=== PATIENT | male | born 2000 | race Caucasian/White ===

== ENCOUNTER → 2023-01-05 | Outpatient (CLI) | payer OTHER, SELFPAY ==
--- NOTE | 2023-01-05 15:45 | RAD_ITS ---
STUDY: X-RAY EXAMINATION: SCOLIOSIS SERIES REASON FOR EXAM: Male, 22 years old. Scoliosis. Back pain. TECHNIQUE: 2 view(s) of the thoracolumbar spine were obtained in the upright standing position. COMPARISON: None. FINDINGS: There is a 9.6 degree levoscoliosis of the upper thoracic spine with the apex of the convexity at the T5 level. There is a 11.2 degree dextroscoliosis of the lower thoracic spine with apex of the convexity at the T9 level. There is a 24 degree levoscoliotic of the thoracolumbar spine with the apex of the convexity at the L1 level. Normal kyphosis of the thoracic spine. Normal thoracic vertebrae and endplates. Normal disc space heights of the thoracic spine. Normal lordosis of the lumbar spine. Normal lumbar vertebrae and endplates. Normal disc space heights of the lumbar spine. The soft tissue structures are unremarkable. RAD/Scoliosis 2 or 3 views IMPRESSION: Diffuse scoliosis of the thoracolumbar spine, as above. Electronically Signed: Michi Bashir DO at 19:43 EST ,
== END | disposition home or self-care (01) ==
PROVIDERS: PCP Pediatrics; Referring Provider Pediatrics; Visit Provider Pediatrics
DX: Z13.828 Encounter for screening for other musculoskeletal disorder (principal)
CPT/HCPCS: 72082

== ENCOUNTER 2025-09-13 21:35 | Emergency (ER) | payer OTHER, SELFPAY ==
[2025-09-13 21:36] VITALS: BP 128/92; PULSE 89; RESP 18; TEMP 36.8; O2SAT 100; BMI 18.7
--- NOTE | 2025-09-13 22:16 | EDS_ITS ---
HPI History of Present Illness Chief Complaint: Suicidal Narrative Narrative: Patient is a 25-year-old male who presented to the emergency department chief complaint of suicidal ideation. Patient states that he has had increasing thoughts secondary to family issues and relationship issues he states this is mainly secondary to his relationship as he found out that his girlfriend became and found out that she cheated on him and this is not his kids. States that he is not on any medications for his anxiety his depression as he had a new primary care physician and they do not want to prescribe this while he is using marijuana he states that he is refusing to discontinue marijuana use. He states that his plan was to drink lethal amount of alcohol and lay next to a river bed. He states that if this did not work he was going to go to his friend's house and get a loaded gun and shoot himself. He states he has never been hospitalized in the past [facility] Medical History Depression Anxiety Home Medications ?Medication ?Instructions ?Recorded ?Last Taken ?Type NK 09/13/25 Unknown History Allergy/AdvReac Type Severity Reaction Status Date / Time No Known Allergies Allergy Verified 09/13/25 21:36 Social History Smoking Status: Current every day smoker tobacco type: e-cigarettes ROS ROS ED ROS Narrative Constitutional: Denies fevers, chills, headaches Eyes: Denies double vision Cardiovascular: Denies chest pain Respiratory: Denies shortness of breath Abdomen: Denies nausea vomit diarrhea : Denies urinary symptoms Neurological: Denies numbness, weakness, tingling Musculoskeletal: Denies back pain Psychiatric: Complaint suicidal ideation denies homicidal ideation Skin: Warm, dry, tact no rashes or lesions noted EXAM Physical Exam Narrative Exam Narrative: General: Patient was lying in bed rest comfortably did not appear to be in acute distress Head: Atraumatic, normocephalic Eyes: PERRL bilaterally, EOMI bilateral, no conjunctival injection noted on Neck: Soft, supple, trachea midline Cardiovascular: Regular rate and rhythm Respiratory: Clear to auscultation bilaterally Abdomen: Soft, nondistended Extremities: Plus 5/5 strength in the bilateral upper and lower extremities Neurological: Patient following commands knew that he was at [facility] years 2024 Skin: Warm, dry, tact no rashes or lesions noted Const Vital Signs: 09/13/25 21:36 09/13/25 22:36 09/13/25 23:33 Temperature 98.2 F Temperature Source Temporal Pulse Rate 89 60 Respiratory Rate 18 18 18 Blood Pressure 128/92 H 115/69 Blood Pressure Mean 104 84 Pulse Ox 100 100 Oxygen Delivery Method Room Air Room Air MDM MDM MDM Narrative Medical decision making narrative: Patient is a 25-year-old male who presented to the emergency department chief complaint of suicidal ideation. On the differential diagnose includes to depression, suicidal ideation. Once workup is obtained reviewed he will be evaluated by crisis. Patient's CBC reviewed and showed no evidence leukocytosis white blood count normal at 9.5, hemosixteen 0.3, platelet count to be 247. Patient sodium is 138, potassium normal 3.9, creatinine was 0.97. Patient's drug screen was presumptive positive for cannabis alcohol level less than 10. Patient is medically cleared. Patient will be evaluated by crisis. Patient was accepted to [facility] by Dr. Aguilar Lab Data Labs: Laboratory Results - last 24 hr 09/13/25 09/13/25 21:56 22:08 WBC 9.5 RBC 5.00 Hgb 16.3 Hct 46.4 MCV 92.8 MCH 32.6 H MCHC 35.1 RDW Std Deviation 43.5 RDW Coeff of Ana 12.7 Plt Count 247 MPV 10.4 Immature Gran % (Auto) 0.200 Neut % (Auto) 84.7 H Lymph % (Auto) 9.7 L [place] % (Auto) 5.0 Eos % (Auto) 0.1 Baso % (Auto) 0.3 Absolute Neuts (auto) 8.1 H Absolute Lymphs (auto) 0.92 Nucleated RBC % 0 Sodium 138 Potassium 3.9 Chloride 100 Carbon Dioxide 26.5 Anion Gap 12 BUN 20 H Creatinine 0.97 Estim Creat Clear Calc 105.47 Est GFR (MDRD) Non-Af 111 BUN/Creatinine Ratio 20.7 H Glucose 103 H Calcium 9.7 Urine Opiates Screen NEGATIVE U Buprenorphine Qual NEGATIVE Ur Oxycodone Screen NEGATIVE Urine Methadone Screen NEGATIVE Urine Fentanyl Screen NEGATIVE Ur Barbiturates Screen NEGATIVE Ur Phencyclidine Scrn NEGATIVE Ur Amphetamines Screen NEGATIVE U Benzodiazepines Scrn NEGATIVE Urine Cocaine Screen NEGATIVE U Cannabinoids Screen PRESUMPTIVE POSITIVE Ethyl Alcohol < 10.1 Discharge Plan Triage Chief Complaint: Suicidal ED Provider: Harrison Barrientos Dx/Rx/DC Orders Clinical Impression: Suicidal ideation, Anxiety, Depression Prescriptions: No Action NK Primary Care Provider: Magen Santos Referrals: Arturo Chavez MD [Non-Staff, Pediatrics] Print Language: Kinyarwanda Disposition Disposition: Psychiatric Hospital or Unit
--- OUTSIDE RECORDS SUMMARY | 2025-09-13 22:26 | XMS RPT_ITS | CCD ---
Author Organization [facility] Care Team Providers Care Nuclear Fuel Processing Technician Name Role Phone Arturo Pickens MD Primary Care Provider Arturo Pickens Referring Unavailable Arturo Pickens Attending Unavailable Arturo Pickens Primary Care Unavailable Arturo Pickens MD Primary Care Provider Unavailable Primary Care Provider Arturo Park MD Primary Care Provider MICHI TOLBERT II Attending Unavailable ARTURO PICKENS Primary Care Unavailable Unavailable Primary Care Provider UnavailNima Odonnell Jr Attending Unavailable Vale Rodriguez Referring Unavailable LIZZETH SANTOS Referring Unavailab LIZZETH Lincoln Attending Unavailab Lizzeth Lincoln MD Primary Care Provider Podlogar CLINICAL DIRECTOR.Becki MASON Unavailable [place]le CLINICAL DIRECTOR.Trinidad MASON Unavailable Medications Current Medications Medication Drug Class(es) Dates Sig (Normalized) Sig (Original) amoxicillin 875 mg / clavulanate 125 mg oral tablet (1 source) Penicillin-class Antibacterial Start: 05-31-2023 End: 06-05-2023 take 1 tablet by mouth twice daily amoxicillin-clavul anic acid (AUGMENTIN) 875-125 mg per tablet Take 1 tablet by mouth twice daily for 5 days. 10 tablet 0 05/31/2023 06/05/2023 Active Comment on above: Take 1 tablet by karla th twice daily for 5 days. 24 hr amphetamine aspartate 1.25 mg / amphetamine sulfate 1.25 mg / dextroamphetamine saccharate 1.25 mg / dextroamphetamine sulfate 1.25 mg extended release oral capsule (20 sources) Central Nervous System Stimulant Start: 02-13-2025 End: 04-12-2025 take 1 capsule by mouth once daily amphetamine-dextro amphetamine XR (ADDERALL XR) 20 mg capsule Indications: Attention deficit hyperactivity disorder (ADHD), predominantly inattentive type Take 1 capsule by mouth once daily for 30 days. 30 capsule 03/13/2025 04/12/2025 Active Start: 02-13-2025 End: 04-12-2025 take 1 capsule by mouth once daily amphetamine-dextroamphetamine XR (ADDERA LL XR) 5 mg capsule Indications: Attention deficit hyperactivity disorder (ADHD), predominantly inattentive type Take 1 capsule by mouth once daily for 30 days. to add to 20 mg for a dose of 25mg daily 30 capsule 03/13/2025 04/12/2025 Active Start: 01-02-2025 End: 02-01-2025 take 1 capsule by mouth once daily amphetamine-dextroamphetamine XR (ADDERA LL XR) 20 mg capsule Indications: Attention deficit hyperactivity disorder (ADHD), predominantly inattentive type Take 1 capsule by mouth once daily for 30 days. 30 capsule 01/02/2025 02/01/2025 Active Start: 01-02-2025 End: 02-01-2025 take 1 capsule by mouth once daily amphetamine-dextroamphetamine XR (ADDERA LL XR) 5 mg capsule Indications: Attention deficit hyperactivity disorder (ADHD), predominantly inattentive type Take 1 capsule by mouth once daily for 30 days. to add to 20 mg for a dose of 25mg daily 30 capsule 01/02/2025 02/01/2025 Active Start: 11-25-2024 End: 12-25-2024 take 1 capsule by mouth once daily amphetamine-dextroamphetamine XR (ADDERA LL XR) 20 mg capsule Indications: Attention deficit hyperactivity disorder (ADHD), predominantly inattentive type Take 1 capsule by mouth once daily for 30 days. 30 capsule 11/25/2024 12/25/2024 Active Start: 11-25-2024 End: 12-25-2024 take 1 capsule by mouth once daily amphetamine-dextroamphetamine XR (ADDERA LL XR) 5 mg capsule Indications: Attention deficit hyperactivity disorder (ADHD), predominantly inattentive type Take 1 capsule by mouth once daily for 30 days. to add to 20 mg for a dose of 25mg daily 30 capsule 11/25/2024 12/25/2024 Active Start: 12-31-2023 End: 06-24-2024 amphetamine-dextroamphetamin e XR (ADDERALL XR) 25 mg capsule Indications: Attention deficit hyperactivity disorder (ADHD), predominantly inattentive type Take 1 capsule by mouth once daily for 30 days. Do not start before December 31, 2023. 30 capsule 0 12/31/2023 06/24/2024 Discontinued Start: 03-09-2023 End: 11-05-2024 take 1 capsule by mouth once daily amphetamine-dextroamphetamine XR (ADDERA LL XR) 20 mg capsule Indications: Attention deficit hyperactivity disorder (ADHD), predominantly inattentive type Take 1 capsule by mouth once daily for 30 days. 30 capsule 09/05/2024 10/06/2024 Discontinued Start: 03-09-2023 End: 11-05-2024 take 1 capsule by mouth once daily amphetamine-dextroamphetamine XR (ADDERA LL XR) 5 mg capsule Indications: Attention deficit hyperactivity disorder (ADHD), predominantly inattentive type Take 1 capsule by mouth once daily for 30 days. to add to 20 mg for a dose of 25mg daily 30 capsule 09/05/2024 10/06/2024 Discontinued Start: 01-14-2023 End: 02-13-2023 take 1 capsule by mouth once daily amphetamine-dextroamphetamine XR (ADDERA LL XR) 5 mg 24 hr capsule Indications: Attention deficit hyperactivity disorder (ADHD), predominantly inattentive type Take 1 capsule by mouth once daily for 30 days. to add to 20 mg for a dose of 25mg daily 30 capsule 0 01/14/2023 02/13/2023 Active Start: 12-29-2022 End: 02-13-2023 take 1 capsule by mouth once daily amphetamine-dextroamphetamine XR (ADDERA LL XR) 20 mg 24 hr capsule Indications: Attention deficit hyperactivity disorder (ADHD), predominantly inattentive type Take 1 capsule by mouth once daily for 30 days. 30 capsule 0 01/14/2023 02/13/2023 Active Start: 10-27-2022 End: 12-25-2022 take 1 capsule by mouth once daily amphetamine-dextroamphetamine XR (ADDERA LL XR) 20 mg 24 hr capsule Indications: Attention deficit hyperactivity disorder (ADHD), predominantly inattentive type Take 1 capsule by mouth once daily for 30 days. 30 capsule 0 11/25/2022 12/25/2022 Active Start: 10-27-2022 End: 12-25-2022 take 1 capsule by mouth once daily amphetamine-dextroamphetamine XR (ADDERA LL XR) 5 mg 24 hr capsule Indications: Attention deficit hyperactivity disorder (ADHD), predominantly inattentive type Take 1 capsule by mouth once daily for 30 days. to add to 20 mg for a dose of 25mg daily 30 capsule 0 11/25/2022 12/25/2022 Active Start: 08-18-2022 End: 10-22-2022 take 1 capsule by mouth once daily amphetamine-dextroamphetamine XR (ADDERA LL XR) 20 mg 24 hr capsule Indications: Attention deficit hyperactivity disorder (ADHD), predominantly inattentive type Take 1 capsule by mouth once daily for 30 days. 30 capsule 0 09/22/2022 10/22/2022 Active Start: 06-19-2022 End: 10-22-2022 take 1 capsule by mouth once daily amphetamine-dextroamphetamine XR (ADDERA LL XR) 5 mg 24 hr capsule Indications: Attention deficit hyperactivity disorder (ADHD), predominantly inattentive type Take 1 capsule by mouth once daily for 30 days. to add to 20 mg for a dose of 25mg daily 30 capsule 0 09/22/2022 10/22/2022 Active Start: 06-16-2022 End: 08-15-2022 take 1 capsule by mouth once daily amphetamine-dextroamphetamine XR (ADDERA LL XR) 20 mg 24 hr capsule Indications: Attention deficit hyperactivity disorder (ADHD), predominantly inattentive type Take 1 capsule by mouth once daily for 30 days. 30 capsule 0 07/16/2022 08/15/2022 Active Start: 12-02-2021 End: 06-08-2022 take 1 capsule by mouth once daily amphetamine-dextroamphetamine XR (ADDERA LL XR) 20 mg 24 hr capsule Indications: Attention deficit hyperactivity disorder (ADHD), predominantly inattentive type Take 1 capsule by mouth once daily for 30 days. 30 capsule 0 05/09/2022 06/08/2022 Active Start: 12-02-2021 End: 06-08-2022 take 1 capsule by mouth once daily amphetamine-dextroamphetamine XR (ADDERA LL XR) 5 mg 24 hr capsule Indications: Attention deficit hyperactivity disorder (ADHD), predominantly inattentive type Take 1 capsule by mouth once daily for 30 days. to add to 20 mg for a dose of 25mg daily 30 capsule 0 05/09/2022 05/19/2022 Discontinued take 2 tablets by [facility] once daily amphetamine-dextroamphetamine 10 MG tabl et Take 2 tablets by mouth daily. Active Comment on above: Take 1 capsule by [facility] once daily for 30 days. Take 1 capsule by [facility] once daily for 30 days. to add to 20 mg for a dose of 25mg daily Take 1 capsule by [facility] once daily for 30 days. to add to 20 mg for a dose of 25mg daily Do not start before December 31, 2021. Take 1 capsule by [facility] once daily for 30 days. Do not start before December 31, 2021. Take 1 capsule by [facility] once daily for 30 days. Do not start before May 08, 2023. Take 1 capsule by [facility] once daily for 30 days. Do not start before April 08, 2023. Take 1 capsule by [facility] once daily for 30 days. to add to 20 mg for a dose of 25mg daily Do not start before May 08, 2023. Take 1 capsule by [facility] once daily for 30 days. to add to 20 mg for a dose of 25mg daily Do not start before April 08, 2023. Take 1 capsule by [facility] once daily for 30 days. Do not start before December 31, 2023. Completed/Discontinued Medications Medication Drug Class(es) Dates Sig (Normalized) Sig (Original) baclofen 10 mg oral tablet (15 sources) gamma-Aminobutyric Acid-ergic Agonist Start: 12-04-2023 End: 03-24-2025 take 1 tablet by mouth every eight hours as needed baclofen 10 mg tablet Take 1 tablet by mouth three times a day as needed. 50 tablet 12/04/2023 03/24/2025 Discontinued (Course of therapy completed) Comment on above: Take 1 tablet by [facility] three times a day as needed. [id number] 0.3 ml EPINEPHrine 1 mg/ml auto-injector (3 sources) alpha-Adrenergic Agonist, beta-Adrenergic Agonist, Catecholamine Start: 02-19-2017 End: 05-19-2022 EPINEPHrine (EPIPEN) 0.3 mg/0.3 mL auto-injector Indications: Angioedema, initial encounter Inject 0.3 mL intramuscularly as needed. Please dispense generic 2 Each 0 02/19/2017 05/19/2022 Discontinued Comment on above: Inject 0.3 mL intram uscularly as needed. Please dispense generic erythromycin 0.005 mg/mg ophthalmic ointment (20 sources) Macrolide, Macrolide Antimicrobial Start: 05-31-2023 End: 03-24-2025 erythromycin (ROMYCIN) 5 mg/gram (0.5 %) ophthalmic ointment Use 1 application in the right eye twice daily. 3.5 g 05/31/2023 03/24/2025 Discontinued (Course of therapy completed) Comment on above: Use 1 application in the right eye twice daily. ISOtretinoin (20 sources) Retinoid ISOTRETINOIN (ACCUTANE ORAL) Take by mouth. 0 Active Comment on above: Take by mouth. meloxicam 7.5 mg oral tablet (15 sources) Nonsteroidal Anti-inflammatory Drug Start: 12-04-2023 End: 03-24-2025 take 1 tablet by mouth once daily meloxicam (MOBIC) 7.5 mg tablet Take 1 tablet by mouth once daily. 30 tablet 12/04/2023 03/24/2025 Discontinued (Course of therapy completed) Comment on above: Take 1 tablet by [facility] once daily. ondansetron 4 mg disintegrating oral tablet (1 source) Serotonin-3 Receptor Antagonist Start: 02-09-2024 End: 02-09-2024 take 1 dose by mouth once 8 mg, Oral, ONCE, 1 dose, On Thu02/09/24 at 0230 Problems Active Problems Problem Classification Problem Date Documented Date Episodic/Chronic Adjustment disorders (20 sources) Adjustment disorder; Translations: [Adjustment disorder, unspecified] Onset: 12-13-2015 12-13-2015 Chronic Attention-deficit, conduct, and disruptive behavior disorders (20 sources) Attention deficit hyperactivity disorder, predominantly inattentive type; Translations: [Attention-deficit hyperactivity disorder, predominantly inattentive type] Chronic Attention-deficit, conduct, and disruptive behavior disorders (4 sources) Attention deficit hyperactivity disorder; Translations: [Attention-deficit hyperactivity disorder, unspecified type] 03-24-2025 Chronic Attention-deficit, conduct, and disruptive behavior disorders (1 source) Attention-deficit hyperactivity disorder, predominantly inattentive type; Translations: [Attention deficit hyperactivity disorder (ADHD), predominantly inattentive type] Onset: 03-24-2025 Chronic E Codes: Natural/environment (1 source) Dog bite - wound; Translations: [Bitten by dog, initial encounter] Episodic Immunizations and screening for infectious disease (6 sources) Patient encounter status; Translations: [Encounter for screening for human immunodeficiency virus [HIV]] Onset: 03-24-2025 03-24-2025 Episodic Other eye disorders (1 source) Disorder of eye; Translations: [Unspecified disorder of eye and adnexa] Episodic Other nutritional; endocrine; and metabolic disorders (1 source) Underweight; Translations: [Underweight] 03-24-2025 Episodic Other nutritional; endocrine; and metabolic disorders (1 source) Underweight; Translations: [Underweight (BMI < 18.5)] Onset: 03-24-2025 Episodic Other nutritional; endocrine; and metabolic disorders (1 source) Body mass index (BMI) 19.9 or less, adult; Translations: [Underweight (BMI < 18.5)] Onset: 03-24-2025 Episodic Residual codes; unclassified (1 source) Nicotine-filled electronic cigarette user; Translations: [Tobacco use] 03-24-2025 Episodic Residual codes; unclassified (1 source) Tobacco use; Translations: [Vapes nicotine containing substance] Onset: 03-24-2025 Episodic Substance-related disorders (3 sources) Marijuana user; Translations: [Cannabis use, unspecified, uncomplicated] Onset: 03-24-2025 03-24-2025 Episodic Syncope (3 sources) Near syncope; Translations: [Syncope and collapse] Onset: 02-09-2024 02-09-2024 Episodic Unclassified (1 source) NO SHOW 02-08-2024 Past or Other Problems Problem Classification Problem Date Documented Date Episodic/Chronic Other diseases of veins and lymphatics (20 sources) Varicocele; Translations: [Scrotal varices] Onset: 06-11-2015 06-11-2015 Episodic Other injuries and conditions due to external causes (20 sources) Angioedema; Translations: [Angioneurotic edema, initial encounter] Onset: 02-23-2017 02-23-2017 Episodic Other screening for suspected conditions (not mental disorders or infectious disease) (20 sources) General problem AND/OR complaint; Translations: [Encounter for screening for other musculoskeletal disorder] Onset: 09-04-2016 09-04-2016 Episodic Other skin disorders (20 sources) Acne; Translations: [Acne, unspecified] Onset: 07-01-2013 07-01-2013 Episodic Results Test Name Value Interpretation Reference Range Facility [facility] 03-24-2025 CNOV Office Visit (FAMPWS ) KWABENA APARICIO ([id number]) 2 M Date Time Provider Department 03/24/25 1:00 PM [facility] your visit today, we recorded the following information about you: Pulse Blood pressure Weight Height 99/minute 100/62 59.4 kg 1.809 m Lizzeth Santos MD 03/28/2025 8:21 AM Signed Chief Complaint Patient presents with: Establish Care: Peds transfer HPI Kwabena Aparicio is a 24 year old male who presents here today for Above Complaints. Previous PCP: Dr. Pickens with last OV 12/2022. Patient has been in good health without recent hospitalizations, ER visits. No concerns today. ADD: Current Treatment: Adderall XR 25mg daily. Last dose this morning. Feels treatment is working well: Yes. Weight loss: No. Insomnia: No. GASTROENTEROLOGY complaints: No. Tremor: No. Mood disorder: No. Chest pain/Palpitations: No Aware of risks associated with controlled substance use: No. Hx of misuse/abuse/diversio n of meds: No. Patient admits to vaping nicotine and THC and uses marijuana. Not interested in help with cessation. BMI under 18.5, but weight stable since 05/2203. Past medical history, appointments, medications, allergies reviewed. Previous Medical History PAST MEDICAL HISTORY Diagnosis Date Acne ADHD (attention deficit hyperactivity disorder) Kawasaki disease (HCC) age 3-4 Scoliosis Previous Surgical History PAST SURGICAL HISTORY Procedure Laterality Date NONE Family History FAMILY HISTORY Problem Relation Age of Onset None Mother None Father Cancer Paternal Grandmother Ovarian Patient Allergies ALLERGIES No Known Allergies Current Medications Current Outpatient Medications on File Prior to Visit Medication Sig amphetamine-dextroamp hetamine XR (ADDERALL XR) 20 mg capsule Take 1 capsule by mouth once daily for 30 days. amphetamine-dextroamp hetamine XR (ADDERALL XR) 5 mg capsule Take 1 capsule by mouth once daily for 30 days. to add to 20 mg for a dose of 25mg daily baclofen 10 mg tablet Take 1 tablet by mouth three times a day as needed. (Patient not taking: Reported on 03/24/2025) meloxicam (MOBIC) 7.5 mg tablet Take 1 tablet by mouth once daily. (Patient not taking: Reported on 03/24/2025) erythromycin (ROMYCIN) 5 mg/gram (0.5 %) ophthalmic ointment Use 1 application in the right eye twice daily. (Patient not taking: Reported on 03/24/2025) No current facility-administered medications on file prior to visit. Social History Social History Tobacco Use Smoking status: Never Smokeless tobacco: Never Vaping Use Vaping status: Never Used Review of Symptoms REVIEW OF SYSTEMS GENERAL: No weight loss, malaise or fevers HEENT: Negative for frequent or significant headaches, No changes in hearing or vision, no nose bleeds or other nasal problems NECK: Negative for lumps, goiter, pain and significant neck swelling RESPIRATORY: Negative for cough, hemoptysis, wheezing, COPD, dyspnea or shortness of breath CARDIOVASCULAR: Negative for chest pain, leg swelling, hypertension, CHF or palpitations GI: No nausea, vomiting, or diarrhea : No history of dysuria, frequency or incontinence MUSCULOSKELETAL: Negative for joint pain or swelling, back pain or muscle pain SKIN: Negative for lesions, rash, and itching PSYCH: Negative for sleep disturbance, mood disorder and recent psychosocial stressors HEMATOLOGY/LYMPHOLOGY : Negative for prolonged bleeding, bruising easily or swollen nodes ENDOCRINE: Negative for cold or heat intolerance, polyuria, polydipsia and goiter NEURO: No history of headaches, syncope, paralysis, seizures or tremors EXAM: BP 100/62 Pulse 99 Ht 180.9 cm (5' 11.22) Wt 59.4 kg (131 lb) SpO2 98% BMI 18.16 kg/m? General Appearance: Well appearing, alert, in no acute distress, well-hydrated, well nourished.. Skin: Skin color, texture, turgor normal, no suspicious rashes or lesions. Head: Normocephalic, no masses, lesions, tenderness or abnormalities. Eyes: Anicteric sclera. Pupils are equally round and reactive to light. Extraocular movements are intact. . Ears: External ears normal, canals clear. Nose/Sinuses: Nares normal, septum midline, mucosa normal, no drainage or sinus tenderness. Oropharynx: Lips, mucosa, and tongue normal, teeth and gums normal, oropharynx normal. Neck: Supple, no adenopathy; thyroid symmetric, normal size, no bruits. Lungs: Lungs clear to auscultation. No wheezing, rhonchi, rales.. Heart: RRR without murmur, gallop, or rubs. No ectopy. Abdomen: Normal abdominal exam, Abdomen soft, non-tender. Bowel sounds normal. No masses, organomegaly. Extremities: No deformities, edema, skin discoloration, clubbing or cyanosis. Good capillary refill. . Peripheral Pulses: Normal. Neurologic: CN II-XII Lymph Nodes: No cervical lymphadenopathy and No supr (more content not included)... Normal [facility] CALCIUMon 02-09-2024 Calcium [Mass/Vol] 9.5 mg/dL Normal 8.6-10.5 [facility] Comment on above: Performed By: #### C A, IPB, CHM7, MGO #### [facility] (DEFAULT) [address] [address] Calcium [Mass/Vol] 9.5 mg/dL 8.6 - 10. 5 mg/dL [facility] CBC AND ELECTRONIC DIFFon Basophils (Bld) [#/Vol] 0.04 10*3/uL Normal 0.00-0.09 [facility] Comment on above: Performed By: #### L [id number] #### [facility] (DEFAULT) [address] [address] Basophils/100 WBC (Bld) 0.5 % Normal [facility] Comment on above: Performed By: #### L [id number] #### [facility] (DEFAULT) [address] [address] DIFF STATUS Electronic Differential Normal [facility] Comment on above: Performed By: #### L [id number] #### [facility] (DEFAULT) [address] [address] Eosinophils (Bld) [#/Vol] 0.04 10*3/uL Normal 0.00-0.48 [facility] Comment on above: Performed By: #### L [id number] #### [facility] (DEFAULT) [address] [address] Eosinophils/100 WBC (Bld) 0.5 % Normal [facility] Comment on above: Performed By: #### L [id number] #### [facility] (DEFAULT) [address] [address] Hematocrit (Bld) [Volume fraction] 44.9 % Normal 39.6-48.8 [facility] Comment on above: Performed By: #### L [id number] #### [facility] (DEFAULT) [address] [address] Hemoglobin (Bld) [Mass/Vol] 15.6 g/dL Normal 13.4-16.8 [facility] Comment on above: Performed By: #### L [id number] #### [facility] (DEFAULT) [address] [address] Immature Grans % 0.2 % Normal [facility] Comment on above: Performed By: #### L [id number] #### [facility] (DEFAULT) [address] [address] Immature Grans Absolute < Normal <=0.07 [facility] Comment on above: Performed By: #### L [id number] #### [facility] (DEFAULT) [address] [address] Lymphocytes (Bld) [#/Vol] 1.94 10*3/uL Normal 0.83-3.57 [facility] Comment on above: Performed By: #### L [id number] #### [facility] (DEFAULT) [address] [address] Lymphocytes/100 WBC (Bld) 22.7 % Normal [facility] Comment on above: Performed By: #### L [id number] #### [facility] (DEFAULT) [address] [address] MCV (RBC) [Entitic vol] 91.3 fL Normal 79.0-94.5 [facility] Comment on above: Performed By: #### L [id number] #### [facility] (DEFAULT) [address] [address] Mean Cell Hgb 31.7 pg Normal 26.1-33.3 [facility] Comment on above: Performed By: #### L [id number] #### [facility] (DEFAULT) [address] [address] Mean Cell Hgb Conc 34.7 g/dL Normal 31.9-36.5 [facility] Comment on above: Performed By: #### L [id number] #### [facility] (DEFAULT) [address] [address] Monocytes (Bld) [#/Vol] 0.38 10*3/uL Normal 0.24-0.93 [facility] Comment on above: Performed By: #### L [id number] #### [facility] (DEFAULT) [address] [address] Monocytes/100 WBC (Bld) 4.4 % Normal [facility] Comment on above: Performed By: #### L [id number] #### [facility] (DEFAULT) [address] [address] Nucleated RBC 0.0 /100 WBC Normal <=0.2 [facility] Comment on above: Performed By: #### L [id number] #### [facility] (DEFAULT) [address] [address] Platelet mean volume (Bld) [Entitic vol] 10.3 fL Normal 8.7-12.3 [facility] Comment on above: Performed By: #### L [id number] #### [facility] (DEFAULT) [address] [place] [address] Platelets (Bld) [#/Vol] 260 10*3/uL Normal 146-337 [facility] Comment on above: Performed By: #### L [id number] #### [facility] (DEFAULT) [address] [place] [address] RBC (Bld) [#/Vol] 4.92 10*6/uL Normal 4.38-5.83 [facility] Comment on above: Performed By: #### L [id number] #### [facility] (DEFAULT) [address] [place] [id number] RBC Distribution 11.8 % Normal 10.9-14.3 [facility] Comment on above: Performed By: #### L [id number] #### [facility] (DEFAULT) [address] [place] [address] Segs + Bands Auto 71.7 % Normal [facility] Comment on above: Performed By: #### L [id number] #### [facility] (DEFAULT) [address] [place] [address] Segs + Bands,Absolute Auto 6.14 K/uL Normal 1.57-6.19 [facility] Comment on above: Performed By: #### L [id number] #### [facility] (DEFAULT) [address] [place] [address] WBC (Bld) [#/Vol] 8.56 10*3/uL Normal 3.73-10.10 [facility] Comment on above: Performed By: #### L [id number] #### [facility] (DEFAULT) [address] [place] [id number] Basophils (Bld) [#/Vol] 0.04 10*3/uL 0.00 - 0.09 K/uL [facility] Basophils/100 WBC (Bld) 0.5 % [facility] Differential cell count method Nom (Bld) Electronic Differential [facility] Eosinophils (Bld) [#/Vol] 0.04 10*3/uL 0.00 - 0.48 K/uL [facility] Eosinophils/100 WBC (Bld) 0.5 % [facility] Erythrocyte distribution width (RBC) [Ratio] 11.8 % 10.9 - 14.3 % [facility] Hematocrit (Bld) [Volume fraction] 44.9 % 39.6 - 48.8 % [facility] Hemoglobin (Bld) [Mass/Vol] 15.6 g/dL 13.4 - 16.8 g/dL [facility] Immature granulocytes (Bld) [#/Vol] K/uL NINF - 0.07 K/uL [facility] Immature granulocytes/100 WBC (Bld) 0.2 % [facility] Lymphocytes (Bld) [#/Vol] 1.94 10*3/uL 0.83 - 3.57 K/uL [facility] Lymphocytes/100 WBC (Bld) 22.7 % [facility] MCH (RBC) [Entitic mass] 31.7 pg 26.1 - 33.3 pg [facility] MCHC (RBC) [Mass/Vol] 34.7 g/dL 31.9 - 36.5 g/dL [facility] MCV (RBC) [Entitic vol] 91.3 fL 79.0 - 94.5 fL [facility] Monocytes (Bld) [#/Vol] 0.38 10*3/uL 0.24 - 0.93 K/uL [facility] Monocytes/100 WBC (Bld) 4.4 % [facility] Neutrophils (Bld) [#/Vol] 6.14 10*3/uL 1.57 - 6.19 K/uL [facility] Nucleated RBC/100 WBC (Bld) [Ratio] 0.0 % [facility] Platelet mean volume (Bld) [Entitic vol] 10.3 fL 8.7 - 12.3 fL [facility] Platelets (Bld) [#/Vol] 260 10*3/uL 146 - 337 K/uL [facility] RBC (Bld) [#/Vol] 4.92 10*6/uL [facility] Segmented neutrophils/100 WBC (Bld) 71.7 % [facility] WBC (Bld) [#/Vol] 8.56 10*3/uL 3.73 - 10. 10 K/uL [facility] CHEM 7 (LYTES,BUN,CREA,GLUC) on 02-09-2024 Anion gap [Moles/Vol] 12 mmol/L Normal 7-17 [facility] Comment on above: Performed By: #### C Jaylin, IPB, CHM7, MGO #### [facility] (DEFAULT) [address] [place] [address] Chloride [Moles/Vol] 101 mmol/L Normal 98-108 [facility] Comment on above: Performed By: #### Gerda Mosqueda, IPB, CHM7, MGO #### [facility] (DEFAULT) [address] [place] [address] CO2 [Moles/Vol] 27 mmol/L Normal 21-31 [facility] Comment on above: Performed By: #### Gerda Mosqueda, IPB, CHM7, MGO #### [facility] (DEFAULT) [address] [place] [address] Creatinine [Mass/Vol] 1.22 mg/dL Normal 0.70-1.30 [facility] Comment on above: Performed By: #### Greda A, IPB, CHM7, MGO #### [facility] (DEFAULT) [address] [place] [address] GFR/1.73 sq M.predicted among non-blacks MDRD (S/P/Bld) [Vol rate/Area] 86 mL/min/{1.73_m2} Normal >=60 [facility] Comment on above: Result Comment: Repo rted eGFR is based on the CKD-EPI 2020 equation using creatinine, age, and sex. Performed By: #### C A, IPB, CHM7, MGO #### [facility] (DEFAULT) [address] [place] [address] Glucose [Mass/Vol] 188 mg/dL High 70-99 [facility] Comment on above: Performed By: #### Gerda Mosqueda, SAYRAB, CHM7, MGO #### [facility] (DEFAULT) [address] [place] [address] Osmolality [Osmolality] 293 mosm/kg Normal 278-305 [facility] Comment on above: Performed By: #### Gerda Mosqueda, IPB, CHM7, MGO #### [facility] (DEFAULT) [address] [place] [address] Potassium [Moles/Vol] 3.5 mmol/L Normal 3.5-5.0 [facility] Comment on above: Performed By: #### Gerda Mosqueda, IPB, CHM7, MGO #### [facility] (DEFAULT) [address] [place] [address] Sodium [Moles/Vol] 136 mmol/L Normal 135-145 [facility] Comment on above: Performed By: #### Gerda Mosqueda IPB, CHM7, MGO #### [facility] (DEFAULT) [address] [place] [address] Urea nitrogen [Mass/Vol] 20 mg/dL Normal 7-25 [facility] Comment on above: Performed By: #### Gerda Mosqueda, IPB, CHM7, MGO #### [facility] (DEFAULT) [address] [place] [address] Urea nitrogen/Creatinine [Mass ratio] 16 mg/mg Normal [facility] Comment on above: Performed By: #### Gerda Mosqueda, IPB, CHM7, MGO #### [facility] (DEFAULT) [address] [place] [address] Anion gap [Moles/Vol] 12 mmol/L 7 - 17 mmol/L [facility] Chloride [Moles/Vol] 101 mmol/L 98 - 10 8 mmol/L [facility] CO2 [Moles/Vol] 27 mmol/L 21 - 31 mmol/L [facility] Creatinine [Mass/Vol] 1.22 mg/dL 0.70 - 1.30 mg/dL [facility] eGFR, CKD-EPI, Male 86 - PINF [facility] Comment on above: Reported eGFR is bas ed on the CKD-EPI 2020 equation using creatinine, age, and sex. Glucose [Mass/Vol] 188 mg/dL High 70 - 99 mg/dL [facility] Interpretation and review of laboratory results Abnormal [facility] Osmolality Calc [Osmolality] 293 [facility] Potassium [Moles/Vol] 3.5 mmol/L 3.5 - 5.0 mmol/L [facility] Sodium [Moles/Vol] 136 mmol/L 135 - 145 mmol/L [facility] Urea nitrogen [Mass/Vol] 20 mg/dL 7 - 25 mg/dL [facility] Urea nitrogen/Creatinine [Mass ratio] 16 mg/mg [facility] FLUAV and FLUBV Ag IA.rapid Nom (Unsp spec)on 02-09-2024 FLUAV Ag IA.rapid Ql (Nph) Not detected Not Detected [facility] FLUBV Ag IA.rapid Ql (Nph) Not detected Not Detected [facility] Interpretation and review of laboratory results Normal [facility] This test utilizes isothermal nucleic amplification technology for the differential qualitative detection of influenza A and influenza B viral nucleic acids. [facility] GLUCOSE POCon 02-09-2024 Glucose [Mass/Vol] 184 mg/dL High 70 - 99 mg/dL [facility] Interpretation and review of laboratory results Abnormal [facility] POC Sample Type CAPBL [facility] Test performed at address of the patient encounter. [facility] HIGH SENSITIVITY TROPONIN I - SINGLE ORDERon 02-09-2024 hs-Troponin I <3 Normal <53 [facility] Comment on above: Order Comment: Acute Coronary Syndrome (ACS): Initial Evaluation and Management: [email or web address] Performed By: #### L ABHSTI1 #### [facility] (DEFAULT) [address] [address] Interpretation and review of laboratory results Normal [facility] Troponin I.cardiac High sensitivity method [Mass/Vol] ng/L NINF - 53 ng/L [facility] INFLUENZA A/B RAPID MOLECULA Marcos 02-09-2024 Influenza A, Molecular Not detected Normal Not Detected [facility] Comment on above: Order Comment: This test utilizes isothermal nucleic amplification technology for the differential qualitative detection of influenza A and influenza B viral nucleic acids. Performed By: #### F LUABM #### [facility] (DEFAULT) [address] [address] Influenza B, Molecular Not detected Normal Not Detected [facility] Comment on above: Order Comment: This test utilizes isothermal nucleic amplification technology for the differential qualitative detection of influenza A and influenza B viral nucleic acids. Performed By: #### F LUABM #### [facility] (DEFAULT) [address] [address] MAGNESIUMon 02-09-2024 Magnesium [Mass/Vol] 2.2 mg/dL Normal 1.6-2.6 [facility] Comment on above: Performed By: #### C EVARISTO Mosqueda CHM7, MGO #### [facility] (DEFAULT) [address] [address] Magnesium [Mass/Vol] 2.2 mg/dL 1.6 - 2 .6 mg/dL [facility] No Panel Informationon 02-08 [facility] Interpretation and review of laboratory results Normal [facility] PHOSPHATE, INORGANICon 02-08 Phosphorous 4.0 mg/dL Normal 2.2-4.6 [facility] Comment on above: Performed By: #### C EVARISTO Mosqueda CHM7, MGO #### [facility] (DEFAULT) [address] [place] [address] Phosphate [Mass/Vol] 4.0 mg/dL 2.2 - 4 .6 mg/dL [facility] Portable XR Chest Viewson IMPRESSION: No acute cardiopulmonary findings. OLOGY EXAM: XR CHEST 1 VIE W PORTABLE, 02/09/2024 01:12 AM COMPARISON: No prior studies available for comparison. CLINICAL INDICATIONS: patient with chest pain FINDINGS: (Adequate technique) Implanted Devices: None Thorax: Cardiac and mediastinal contours are normal. No focal consolidation or pleural effusion. Levoscoliotic curvature of the lower thoracic spine. RADIOLOGY Ally Hooks M D - 02/09/2024 EXAM: XR CHEST 1 VIEW PORTABLE, 02/09/2024 01:12 AM COMPARISON: No prior studies available for comparison. CLINICAL INDICATIONS: patient with chest pain FINDINGS: (Adequate technique) Implanted Devices: None Thorax: Cardiac and mediastinal contours are normal. No focal consolidation or pleural effusion. Levoscoliotic curvature of the lower thoracic spine. IMPRESSION IMPRESSION: No acute cardiopulmonary findings. [facility] Radiology Study observation (narrative) [facility] Portable XR Chest ViewsOrder ed By: Ally Hooks on 02-09-2024 [facility] Work Phone: SARS-COV-2 RAPIDon SARS-CoV-2 (COVID-19) RNA JB+probe Ql (Unsp spec) Not detected Normal NOT DETECTED [facility] Comment on above: Order Comment: Use a beatrice, foam, polyester, or flocked swab to collect a nasal or nasopharyngeal specimen. After collection, place in a clean, plastic screw cap vial, cap tightly and label with patient information. Transport double bagged in biohazard bag at room temperature. Must be received within 60 minutes of collection. Collection must be done while wearing N-95 mask, eye protection, gown, and gloves. Result Comment: [facility] Negative results do not preclude SARS-CoV-2 infection and should not be used as the sole basis for treatment or other patient management decisions. Optimum specimen types and timing for peak viral levels during infections caused by SARS-CoV-2 has not been determined. The possibility of a false negative result should especially be considered if the patient's recent exposures or clinical presentation suggest that SARS-CoV-2 infection is probable, and diagnostic tests for other causes of illness (e.g., other respiratory illness) are negative. Collection of a new specimen and re-testing may be necessary if the patient is critically ill or clinically deteriorating. This test was performed using isothermal nucleic acid amplification technology for the qualitative detection of SARS-CoV-2 nucleic acid. Performed By: #### L ABSARS1 #### [facility] (DEFAULT) [address] [place] [address] SARS-CoV-2 (COVID-19) RNA NA A+probe Ql (Unsp spec)Ordered By: Scott Sue on 02-09-2024 Interpretation and review of laboratory results Normal [facility] SARS-CoV-2 (COVID-19) RdRp gene JB+probe Ql (Resp) Not detected NOT DETECTED [facility] Comment on above: [facility] Negative results do not preclude SARS-CoV-2 infection and should not be used as the sole basis for treatment or other patient management decisions. Optimum specimen types and timing for peak viral levels during infections caused by SARS-CoV-2 has not been determined. The possibility of a false negative result should especially be considered if the patient's recent exposures or clinical presentation suggest that SARS-CoV-2 infection is probable, and diagnostic tests for other causes of illness (e.g., other respiratory illness) are negative. Collection of a new specimen and re-testing may be necessary if the patient is critically ill or clinically deteriorating. This test was performed using isothermal nucleic acid amplification technology for the qualitative detection of SARS-CoV-2 nucleic acid. [facility] XR CHEST 1 VIEW PORTABLEon 0 02-09-2024 XR CHEST 1 VIEW PORTABLE EXAM: XR CHEST 1 VIEW PORTABLE, 02/09/2024 01:12 AM COMPARISON: No prior studies available for comparison. CLINICAL INDICATIONS: patient with chest pain FINDINGS: (Adequate technique) Implanted Devices: None Thorax: Cardiac and mediastinal contours are normal. No focal consolidation or pleural effusion. Levoscoliotic curvature of the lower thoracic spine. IMPRESSION: No acute cardiopulmonary findings. Normal [facility] Scoliosis 2 or 3 viewson Scoliosis 2 or 3 views [facility] Services [address] [place] [address] Scoliosis 2 or 3 views MR#: [id number] Acct: [id number] Name: KWABENA APARICIO Rep #: [id number] : 2000 M 22 From: Michi Bashir DO PCP: Dr. Arturo Pickens MD Status: REG CLI Study: Scoliosis 2 or 3 views Date of Exam: 01/05/23 Exam# [id number] Ordering Dr: Arturo Pickens MD STUDY: X-RAY EXAMINATION: SCOLIOSIS SERIES REASON FOR EXAM: Male, 22 years old. Scoliosis. Back pain. TECHNIQUE: 2 view(s) of the thoracolumbar spine were obtained in the upright standing position. COMPARISON: None. FINDINGS: There is a 9.6 degree levoscoliosis of the upper thoracic spine with the apex of the convexity at the T5 level. There is a 11.2 degree dextroscoliosis of the lower thoracic spine with apex of the convexity at the T9 level. There is a 24 degree levoscoliotic of the thoracolumbar spine with the apex of the convexity at the L1 level. Normal kyphosis of the thoracic spine. Normal thoracic vertebrae and endplates. Normal disc space heights of the thoracic spine. Normal lordosis of the lumbar spine. Normal lumbar vertebrae and endplates. Normal disc space heights of the lumbar spine. The soft tissue structures are unremarkable. RAD/Scoliosis 2 or 3 views IMPRESSION: Diffuse scoliosis of the thoracolumbar spine, as above. Electronically Signed: Michi Bashir DO at 19:43 EST , CC: Dr. Arturo Pickens MD Assurance Senior Manager: Signed Normal [facility] Vital Signs Date Time Vital Sign Value Performing Clinician Faci lity 03-24-2025 13:08-0400 Body height 180.9 cm Lizzeth Santos MD Work Phone: [facility] 03-24-2025 13:08-0400 Body mass index (BMI) [Ratio] 18.16 kg/m2 Lizzeth Santos MD Work Phone: [facility] 03-24-2025 13:08-0400 Body weight 59.42 kg Lizzeth Santos MD Work Phone: [facility] 03-24-2025 13:08-0400 Diastolic blood pressure 62 mm[Hg] Lizzeth Santos MD Work Phone: [facility] 03-24-2025 13:08-0400 Heart rate 99 /min Lizzeth Santos MD Work Phone: [facility] 03-24-2025 13:08-0400 SaO2% (BldA) [Mass fraction] 98 % Lizzeth Santos MD Work Phone: [facility] 03-24-2025 13:08-0400 Systolic blood pressure 100 mm[Hg] Lizzeth Santos MD Work Phone: [facility] 02-09-2024 12:12-0400 Body temperature 97.5 [degF] Michi Tolbert II, MD Work Phone: [facility] 02-09-2024 12:12-0400 Diastolic blood pressure 65 mm[Hg] Michi Tolbert II, MD Work Phone: [facility] 02-09-2024 12:12-0400 Heart rate 65 /min Michi Tolbert II, MD Work Phone: [facility] 02-09-2024 12:12-0400 Respiratory rate 16 /min Michi Tolbert II, MD Work Phone: [facility] 02-09-2024 12:12-0400 Systolic blood pressure 110 mm[Hg] Michi Tolbert II, MD Work Phone: [facility] 02-09-2024 09:39-0400 SaO2% (BldA) [Mass fraction] 100 % Michi Tolbert II, MD Work Phone: [facility] 02-09-2024 00:56-0400 Body height 182.9 cm Michi Tolbert II, MD Work Phone: [facility] 05-31-2023 12:36-0400 Body temperature 97.5 [degF] Emely Nichol CLINICAL DIRECTOR.ADVERTISEMENT COMPOSITOR Work Phone: [facility] 05-31-2023 12:36-0400 Body weight 60.24 kg Emely Nichol CLINICAL DIRECTOR.ADVERTISEMENT COMPOSITOR Work Phone: [facility] 05-31-2023 12:36-0400 Diastolic blood pressure 62 mm[Hg] Emely Nichol CLINICAL DIRECTOR.ADVERTISEMENT COMPOSITOR Work Phone: [facility] 05-31-2023 12:36-0400 Heart rate 84 /min Emely Nichol CLINICAL DIRECTOR.ADVERTISEMENT COMPOSITOR Work Phone: [facility] 05-31-2023 12:36-0400 Respiratory rate 18 /min Eemly Nichol CLINICAL DIRECTOR.ADVERTISEMENT COMPOSITOR Work Phone: [facility] 05-31-2023 12:36-0400 SaO2% (BldA) [Mass fraction] 98 % Emely Nichol CLINICAL DIRECTOR.ADVERTISEMENT COMPOSITOR Work Phone: [facility] 05-31-2023 12:36-0400 Systolic blood pressure 100 mm[Hg] Emely Nichol CLINICAL DIRECTOR.ADVERTISEMENT COMPOSITOR Work Phone: [facility] 01-16-2023 13:21-0500 Body temperature 97.59 [degF] Arturo Pickens MD Work Phone: [facility] 01-16-2023 13:21-0500 Body weight 62.14 kg Arturo Pickens MD Work Phone: [facility] 01-16-2023 13:21-0500 Diastolic blood pressure 76 mm[Hg] Arturo Pickens MD Work Phone: [facility] 01-16-2023 13:21-0500 Heart rate 88 /min Arturo Pickens MD Work Phone: [facility] 01-16-2023 13:-0500 Respiratory rate 20 /min Arturo Pickens MD Work Phone: [facility] 01-16-2023 13:21-0500 Systolic blood pressure 124 mm[Hg] Arturo Pickens MD Work Phone: [facility] Encounters Encounter Date Encounter Type Care Provider Facility Start: 05-29-2025 End: 05-31-2025 Refill Arturo Pickens MD Work Phone: [facility] Comment on above: Refill Request Start: 05-07-2025 End: 05-09-2025 Refill Arturo Pickens MD Work Phone: [facility] Comment on above: Refill Request Start: 04-20-2025 End: 04-25-2025 ambulatory Lizzeth Santos MD Work Phone: [facility] Comment on above: Drug Test Inquiry Start: 03-24-2025 ambulatory LIZZETH Samuel acility:[facility] Start: 03-24-2025 End: 03-24-2025 ambulatory LIZZETH SANTOS Facility:[facility] Start: 03-24-2025 Encounter for genera l adult medical examination without abnormal findings LIZZETH SANTOS [facility] Start: 03-24-2025 End: 03-24-2025 Patient encounter procedure Lizzeth Santos MD Work Phone: [facility] Comment on above: Encounter for medica l examination to establish care (Primary Dx); Attention deficit hyperactivity disorder (ADHD), predominantly inattentive type; Marijuana use; Vapes nicotine containing substance; Underweight (BMI < 18.5); Screening for HIV (human immunodeficiency virus); Special screening examination for viral disease; Need for vaccination; Encounter for immunization Start: 03-24-2025 End: 03-24-2025 Patient encounter status Lizzeth Santos MD Work Phone: [facility] Work Phone: Start: 03-13-2025 End: 03-13-2025 Refill Arturo Pickens MD Work Phone: [facility] Comment on above: Refill Request Start: 02-10-2025 End: 02-13-2025 Refill Arturo Pickens MD Work Phone: [facility] Comment on above: Refill Request Start: 01-01-2025 End: 01-02-2025 Refill Arturo Pickens MD Work Phone: [facility] Comment on above: Refill Request Start: 11-29-2024 ambulatory Nima Arguello [facility] Start: 11-23-2024 End: 11-25-2024 Refill Arturo Pickens MD Work Phone: [facility] Comment on above: Refill Request Start: 10-06-2024 End: 10-06-2024 Refill No Pcp CLINICAL DIRECTOR [facility] Comment on above: Refill Request Start: 09-05-2024 End: 09-05-2024 Refill Arturo Pickens MD Work Phone: [facility] Comment on above: Refill Request Start: 09-05-2024 End: 10-06-2024 Refill Arturo Pickens MD Work Phone: [facility] Comment on above: Refill Request Start: 09-02-2024 End: 09-02-2024 Refill Arturo Pickens MD Work Phone: [facility] Comment on above: Refill Request Start: 07-24-2024 End: 07-25-2024 Refill Arturo Pickens MD Work Phone: [facility] Comment on above: Refill Request Start: 06-24-2024 Refill Arturo Pickens MD Work Phone: [facility] Comment on above: Refill Request Start: 06-23-2024 Refill Lizzeth Santos MD Work Phone: [place] Start: 02-23-2024 Refill Arturo Pickens MD Work Phone: [facility] Comment on above: Refill Request Start: 02-09-2024 End: 02-09-2024 Emergency department patient visit MICHI TOLBERT Facility:[facility] Start: 02-09-2024 End: 02-09-2024 Emergency department patient visit Michi Tolbert MD Work Phone: [facility] Start: 02-08-2024 End: 02-08-2024 Unlisted evaluation and management service Donnie North MD Work Phone: [facility] Comment on above: NO SHOW (Primary Dx) Start: 01-14-2024 Refill Arturo Pickens MD Work Phone: [facility] Comment on above: Refill Request Start: 09-13-2023 Refill Arturo Pickens MD Work Phone: [facility] Comment on above: Refill Request Start: 08-07-2023 Refill Arturo Pickens MD Work Phone: [facility] Comment on above: Refill Request Start: 07-09-2023 Refill Arturo Pickens MD Work Phone: [facility] Comment on above: Refill Request Start: 07-06-2023 Refill Arturo Pickens MD Work Phone: [facility] Comment on above: Refill Request Start: 06-05-2023 Refill Arturo Pickens MD Work Phone: [facility] Comment on above: Refill Request Start: 05-31-2023 End: 05-31-2023 Patient encounter procedure Emely Gandara APRN.ADVERTISEMENT COMPOSITOR Work Phone: [facility] Comment on above: Dog bite, initial en counter (Primary Dx); Eye problem Start: 05-06-2023 Refill Arturo Pickens MD Work Phone: [facility] Comment on above: Refill Request Start: 03-26-2023 ambulatory Arturo Pickens MD Work Phone: [facility] Comment on above: Medication not in [facility] Start: 03-07-2023 Refill Arturo Pickens MD Work Phone: [facility] Comment on above: Refill Request Start: 01-16-2023 End: 01-16-2023 Office outpatient visit 15 minutes Arturo Pickens MD Work Phone: [facility] Comment on above: Attention deficit hy peractivity disorder (ADHD), predominantly inattentive type (Primary Dx) Start: 01-09-2023 Telephone encounter Arturo vazquez MD Work Phone: [facility] [place] Comment on above: Medication Problem Start: 01-05-2023 End: 01-05-2023 Patient encounter procedure [facility], [facility] Start: 01-05-2023 End: 01-05-2023 ambulatory Arturo Pickens [facility] Work Phone: Start: 12-27-2022 Refill Arturo Pickens MD Work Phone: [facility] [place] Comment on above: Refill Request Start: 11-22-2022 Refill Arturo Pickens MD Work Phone: [facility] [place] Comment on above: Refill Request Start: 11-17-2022 End: 11-17-2022 Subsequent hospital visit by physician [facility] [place] Work Phone: Radiology Comment on above: Canceled (CC cx: Err or or Template Change) Start: 11-17-2022 ambulatory Arturo Pickens MD Work Phone: [facility] [place] Comment on above: X-ray Start: 10-25-2022 Refill Arturo Pickens MD Work Phone: [facility] [place] Comment on above: Refill Request Start: 09-22-2022 Refill Arturo Pickens MD Work Phone: [facility] [place] Comment on above: Refill Request Start: 08-19-2022 Refill Arturo Pickens MD Work Phone: [facility] [place] Comment on above: Refill Request Start: 07-19-2022 Refill Arturo Pickens MD Work Phone: [facility] [place] Comment on above: Refill Request Start: 06-15-2022 Refill Arturo Pickens MD Work Phone: [facility] [place] Comment on above: Refill Request Start: 05-21-2022 Telephone encounter [facility] [place] Comment on above: Smoking Cessation Start: 05-19-2022 End: 05-19-2022 [facility] Arturo Pickens MD Work Phone: [facility] [place] Comment on above: Attention deficit hy peractivity disorder (ADHD), predominantly inattentive type (Primary Dx) Start: 05-09-2022 Refill Arturo Pickens MD Work Phone: [facility] [place] Comment on above: Refill Request Start: 04-02-2022 Refill Arturo Pickens MD Work Phone: [facility] [place] Comment on above: Refill Request Procedures Date Procedure Procedure Detail Performing Clinician Start: 02-09-2024 Infectious agent dna /rna influenza 1st 2 types Idalia Celis MD Work Phone: Start: 02-09-2024 Sars-cov-2 detection by dna/rna Idalia Celis MD Work Phone: Start: 02-09-2024 Glucose measurement, blood Other Other OT Start: 02-09-2024 Radiologic exam ches t single view Celeste Ospina MD Work Phone: Start: 02-09-2024 Assay of magnesium Yael Ospina MD Work Phone: Start: 02-09-2024 CBC AND ELECTRONIC DIFF Celeste Ospina MD Work Phone: Start: 02-09-2024 Complete blood count with white cell differential, automated Celeste Ospina MD Work Phone: Start: 02-09-2024 GOLD TOP TUBE Celeste Ospina MD Work Phone: Start: 02-09-2024 LAVENDER TOP TUBE Fela Ospina MD Work Phone: Start: 02-09-2024 LT BLUE TOP TUBE Ayana Ospina MD Work Phone: Start: 02-09-2024 MINT GREEN TOP TUBE Raeann Ospina MD Work Phone: Start: 02-09-2024 RAINBOW DRAW Celeste Ospina MD Work Phone: Start: 01-05-2023 Radiography of spine Start: 05-18-2022 Adult depression scr eening assessment Arturo Pickens MD Work Phone: Start: 01-28-2021 Adult depression scr eening assessment Arturo Pickens MD Work Phone: Plan of Treatment Date Care Activity Detail Author Start: 03-24-2026 Covid-19 Vaccine ( season) Covid-19 Vaccine () [facility] Comment on above: Postponed from 07/31 (Declined at this time) Start: 09-23-2025 MENINGOCOCCAL B VACC INE (BEXSERO) MENINGOCOCCAL B VACCINE (BEXSERO) Immunization/Injection Routine Expected: 09/23/2025 [facility] Comment on above: Expected: 09/23/2025 Start: 07-31-2025 Influenza vaccination C [facility] Start: 05-29-2025 Influenza vaccination Influenza Vacc ine (#1) [facility] Comment on above: Postponed from 07/31 (Declined at this time) Start: 04-25-2025 End: 07-25-2025 QUANTITATIVE TOXICOLOGY PANEL, URINE QUANTITATIVE TOXICOLOGY PANEL, URINE Lab Routine Marijuana use Expected: 04/25/2025, Expires: 07/25/2025 [facility] Comment on above: Expected: 04/25/2025 , Expires: 07/25/2025 Start: 04-25-2025 End: 07-25-2025 TOXICOLOGY SCREEN, ROUTINE URINE TOXICOLOGY SCREEN, ROUTINE URINE Lab Routine Marijuana use Expected: 04/25/2025, Expires: 07/25/2025 [facility] Work Phone: Comment on above: Expected: 04/25/2025 , Expires: 07/25/2025 Start: 03-24-2025 End: 06-23-2025 CBC W Auto Differential panel - Blood COMPLETE BLOOD COUNT AND DIFFERENTIAL Lab Routine Encounter for medical examination to establish care Expected: 03/24/2025, Expires: 06/23/2025 [facility] Comment on above: Expected: 03/24/2025 , Expires: 06/23/2025 Start: 03-24-2025 End: 06-23-2025 Comprehensive metabolic 2000 panel - Serum or Plasma COMPREHENSIVE METABOLIC PANEL Lab Routine Encounter for medical examination to establish care Expected: 03/24/2025, Expires: 06/23/2025 [facility] Comment on above: Expected: 03/24/2025 , Expires: 06/23/2025 Start: 03-24-2025 End: 06-23-2025 Hepatitis C virus Ab [Presence] in Serum HEPATITIS C ANTIBODY IA WITH CONFIRMATION Lab Routine Special screening examination for viral disease Expected: 03/24/2025, Expires: 06/23/2025 [facility] Comment on above: Expected: 03/24/2025 , Expires: 06/23/2025 Start: 03-24-2025 End: 06-23-2025 HIV 1+2 Ab [Presence] in Serum or Plasma by Immunoassay HIV 1/2 COMBO WITH REFLEX TO DIFFERENTIATION Lab Routine Screening for HIV (human immunodeficiency virus) Expected: 03/24/2025, Expires: 06/23/2025 [facility] Comment on above: Expected: 03/24/2025 , Expires: 06/23/2025 Start: 03-24-2025 End: 06-23-2025 LIPID PANEL, NONFASTING LIPID PANEL, NONFASTING Lab Routine Encounter for medical examination to establish care Expected: 03/24/2025, Expires: 06/23/2025 [facility] Comment on above: Expected: 03/24/2025 , Expires: 06/23/2025 Start: 03-24-2025 End: 06-23-2025 Thyrotropin [Units/volume] in Serum or Plasma THYROID STIMULATING HORMONE Lab Routine Underweight (BMI < 18.5) Expected: 03/24/2025, Expires: 06/23/2025 [facility] Comment on above: Expected: 03/24/2025 , Expires: 06/23/2025 Start: 03-24-2025 End: 03-24-2025 Patient encounter procedure 03/24/2025 1:00 PM EDT Office Visit [facility] [place] [address] [facility] [place], [place] [address] Lizzeth Santos MD [address] [facility] [place], [place] [id number] Peds transfer / Est with Danielle [facility] Comment on above: Peds transfer / Est with Danielle Start: 09-02-2024 End: 09-02-2024 Patient encounter procedure 09/02/2024 10:20 AM EDT Office Visit [facility] [place] [address] [facility] [place], [place] [id number] Lizzeth Santos MD [address] [facility] [place], [place] [id number] Peds transfer [facility] Comment on above: Peds transfer Start: 07-31-2024 Covid-19 Vaccine ( season) Covid-19 Vaccine ( season) [facility] Start: 07-31-2024 Influenza vaccination Influenza Vacc ine (#1) [facility] Start: 11-30-2023 Depression Assessment Depression Ass essment [facility] Start: 07-31-2023 COVID-19 VACCINE ( season) COVID-19 VACCINE ( season) [facility] Start: 07-31-2023 Covid-19 Vaccine ( season) Covid-19 Vaccine ( season) [facility] Start: 07-31-2023 Influenza vaccination C [facility] Start: 05-18-2023 Adult depression screening assessment DEPRESSION SCREENING [facility] Start: 11-30-2022 DEPRESSION ASSESSMENT DEPRESSION ASS ESSMENT [facility] Start: 07-31-2022 Influenza vaccination C [facility] Start: 06-26-2022 Tetanus vaccination TETANUS [facility] Start: 06-26-2022 Urine microalbumin profile [facility] Start: 01-28-2022 Adult depression screening assessment DEPRESSION SCREENING [facility] Start: 11-30-2021 DEPRESSION ASSESSMENT DEPRESSION ASS ESSMENT [facility] Start: 06-10-2021 COVID-19 VACCINE (2 - Booster for Moderna series) COVID-19 VACCINE (2 - Booster for Moderna series) [facility] Start: 06-10-2021 COVID-19 VACCINE (2 - Moderna series) COVID-19 VACCINE (2 - Moderna series) [facility] Start: 05-13-2021 COVID-19 VACCINE (2 - Moderna risk series) COVID-19 VACCINE (2 - Moderna risk series) [facility] Start: 05-13-2021 COVID-19 VACCINE (2 - Moderna series) COVID-19 VACCINE (2 - Moderna series) [facility] Start: 2020 SHINGRIX VACCINE (1 of 2) SHINGRIX VACCINE (1 of 2) [facility] Start: 2019 Anxiety Screening Anxiety Screening [facility] Start: 2019 Depression Screening Depression Scre ening [facility] Start: 2019 HEPATITIS C SCREENING HEPATITIS C [facility] Start: 2019 Hepatitis C screening Hepatitis C [facility] Start: 2019 HIV SCREENING HIV SCREENING [facility] Start: 2019 HIV screening HIV Screening [facility] Start: 2017 Meningococcal B Vacc ine (1 of 2 - Standard) Meningococcal B Vaccine (1 of 2 - Standard) [facility] Start: 2017 Meningococcal B Vaccine: Consider Based On Risk (1 of 2 - Patient Seeks Protection) Meningococcal B Vaccine: Consider Based On Risk (1 of 2 - Patient Seeks Protection) [facility] Start: 2017 MENINGOCOCCAL B: Consider based on risk (1 of 2 - Patient Seeks Protection) MENINGOCOCCAL B: Consider based on risk (1 of 2 - Patient Seeks Protection) [facility] Start: 2016 HIV screening HIV SCREENING DISCUSSI ON U [facility] Start: 2015 PEDS TO ADULT TRANSITION ANNUAL ASSESSMENT PEDS TO ADULT TRANSITION ANNUAL ASSESSMENT [facility] Start: 2013 COVID-19 VACCINE (1) COVID-19 VACCIN E (1) [facility] Start: 2013 PEDS TO ADULT TRANSITION INITIAL DISCUSSION PEDS TO ADULT TRANSITION INITIAL DISCUSSION [facility] Start: 2011 MENINGOCOCCAL B: Consider based on risk (1 of 2 - Risk Bexsero 2-dose series) MENINGOCOCCAL B: Consider based on risk (1 of 2 - Risk Bexsero 2-dose series) [facility] Start: 2007 PNEUMOCOCCAL (1 - PCV) PNEUMOCOCCAL (1 - PCV) [facility] Start: 2007 PNEUMOCOCCAL VACCINE SERIES (1 of 2 - PCV) PNEUMOCOCCAL VACCINE SERIES (1 of 2 - PCV) [facility] Start: 2006 COVID-19 VACCINE (#1) COVID-19 VACCI NE (#1) [facility] Start: 2001 Hepatitis C screening HEPATITI S C VIRUS SCREENING [facility] MENINGOCOCCAL B VACC INE (BEXSERO) MENINGOCOCCAL B VACCINE (BEXSERO) Immunization/Injection Routine Ordered: 03/24/2025 [facility] Comment on above: Ordered: 03/24/2025 End: 02-09-2024 Standard ECG ECG ECG STAT One Time for 1 Occurrences starting 02/09/2024 until 02/09/2024 [facility] Work Phone: Comment on above: One Time for 1 Occur rences starting 02/09/2024 until 02/09/2024 Tdap vaccine 7 yrs/> im TDAP VAC CINE, AGE 7+ YR (ADACEL, BOOSTRIX) Immunization/Injection Routine Ordered: 03/24/2025 [facility] Work Phone: Comment on above: Ordered: 03/24/2025 [facility] Immunizations Immunization Date Immunization Notes Care Provider [facility] 09-22-2018 Influenza, injectabl e, Madin Sandra Canine Kidney, preservative free, quadrivalent Arturo Pickens MD Work Phone: [facility] Work Phone: 09-22-2018 influenza virus vaccine, unspecified formulation Arturo Pickens MD Work Phone: [facility] 11-16-2017 influenza, injectabl e, quadrivalent, contains preservative Arturo Pickens MD Work Phone: [facility] 11-16-2017 meningococcal polysaccharide (groups A, C, Y and W-135) diphtheria toxoid conjugate vaccine (MCV4P) Arturo Pickens MD Work Phone: [facility] 08-23-2016 influenza, injectabl e, quadrivalent, contains preservative Arturo Pickens MD Work Phone: [facility] 10-13-2015 influenza, injectabl e, quadrivalent, contains preservative Arturo Pickens MD Work Phone: [facility] 09-28-2014 influenza, live, intranasal, quadrivalent Arturo Pickens MD Work Phone: [facility] 03-02-2014 human papilloma viru s vaccine, quadrivalent Arturo Pickens MD Work Phone: [facility] Work Phone: 08-16-2013 human papilloma viru s vaccine, quadrivalent Arturo Pickens MD Work Phone: [facility] Work Phone: 08-16-2013 influenza virus vaccine, unspecified formulation Arturo Pickens MD Work Phone: [facility] Work Phone: 07-01-2013 human papilloma viru s vaccine, quadrivalent Arturo Pickens MD Work Phone: [facility] 08-21-2012 influenza virus vaccine, live, attenuated, for intranasal use Arturo Pickens MD Work Phone: [facility] Work Phone: 06-26-2012 Meningococcal, MCV4, unspecified conjugate formulation(groups A, C, Y and W-135) Arturo Pickens MD Work Phone: [facility] Work Phone: 06-26-2012 tetanus toxoid, reduced diphtheria toxoid, and acellular pertussis vaccine, adsorbed Arturo Pickens MD Work Phone: [facility] Work Phone: 10-11-2011 influenza virus vaccine, live, attenuated, for intranasal use Arturo Pickens MD Work Phone: [facility] Work Phone: 05-06-2011 varicella virus vaccine Arturo Pickens MD Work Phone: [facility] 01-17-2008 hepatitis A vaccine, unspecified formulation Arturo Pickens MD Work Phone: [facility] Work Phone: 2007 hepatitis A vaccine, unspecified formulation Arturo Pickens MD Work Phone: [facility] Work Phone: 06-27-2005 diphtheria, tetanus toxoids and acellular pertussis vaccine Arturo Pickens MD Work Phone: [facility] Work Phone: 06-27-2005 measles, mumps and rubella virus vaccine Arturo Pickens MD Work Phone: [facility] Work Phone: 06-27-2005 poliovirus vaccine, inactivated Arturo Pickens MD Work Phone: [facility] Work Phone: 06-26-2003 pneumococcal conjuga te vaccine, 7 valent Arturo Pickens MD Work Phone: [facility] Work Phone: 11-11-2002 diphtheria, tetanus toxoids and acellular pertussis vaccine Arturo Pickens MD Work Phone: [facility] Work Phone: 11-11-2002 haemophilus influenz ae type b vaccine, HbOC conjugate Arturo Pickens MD Work Phone: [facility] Work Phone: 06-27-2002 hepatitis B vaccine, pediatric or pediatric/adolescent dosage Arturo Pickens MD Work Phone: [facility] Work Phone: 06-27-2002 measles, mumps and rubella virus vaccine Arturo Pickens MD Work Phone: [facility] Work Phone: 06-27-2002 varicella virus vaccine Arturo Pickens MD Work Phone: [facility] Work Phone: 01-06-2002 diphtheria, tetanus toxoids and acellular pertussis vaccine Arturo Pickens MD Work Phone: [facility] Work Phone: 01-06-2002 haemophilus influenz ae type b vaccine, HbOC conjugate Arturo Pickens MD Work Phone: [facility] Work Phone: 01-06-2002 pneumococcal conjuga te vaccine, 7 valent Arturo Pickens MD Work Phone: [facility] Work Phone: 01-06-2002 poliovirus vaccine, inactivated Arturo Pickens MD Work Phone: [facility] Work Phone: 2001 diphtheria, tetanus toxoids and acellular pertussis vaccine Arturo Pickens MD Work Phone: [facility] Work Phone: 2001 haemophilus influenz ae type b vaccine, HbOC conjugate Arturo Pickens MD Work Phone: [facility] Work Phone: 2001 pneumococcal conjuga te vaccine, 7 valent Arturo Pickens MD Work Phone: [facility] Work Phone: 2001 poliovirus vaccine, inactivated Arturo Pickens MD Work Phone: [facility] Work Phone: 2001 diphtheria, tetanus toxoids and acellular pertussis vaccine Arturo Pickens MD Work Phone: [facility] Work Phone: 2001 haemophilus influenz ae type b vaccine, HbOC conjugate Arturo Pickens MD Work Phone: [facility] Work Phone: 2001 pneumococcal conjuga te vaccine, 7 valent Arturo Pickens MD Work Phone: [facility] Work Phone: 2001 poliovirus vaccine, inactivated Arturo Pickens MD Work Phone: [facility] Work Phone: 2001 hepatitis B vaccine, pediatric or pediatric/adolescent dosage Arturo Pickens MD Work Phone: [facility] Work Phone: 2001 hepatitis B vaccine, pediatric or pediatric/adolescent dosage Arturo Pickens MD Work Phone: [facility] Work Phone: NEGATED: Highlighted row has not occurred!03-24-2025 meningococcal B vaccine, recombinant, OMV, adjuvanted Lizzeth Santos MD Work Phone: [facility] Comment on above: Deferred: Postponed - verified by Elio Judge LPN NEGATED: Highlighted row has not occurred!03-24-2025 tetanus toxoid, reduced diphtheria toxoid, and acellular pertussis vaccine, adsorbed Lizzeth Santos MD Work Phone: [facility] Comment on above: Deferred: Postponed - verified by Elio Judge LPN Payers Date Payer Category Payer Private Health Insurance [id number] 2022 Self-pay 2017 Private Health Insurance [employer] OAP [id number] 2017-Present [phone] [address] [place] [address] Open Access [id number] 2017 Private Health Insurance [id number] 2017 Private Health Insurance [id number] 2001 Unknown [id number] Unknown [id number] Social History Date Type Detail Facility Start: 11-16-2017 End: 05-31-2023 Tobacco smoking status NHIS Never smoked tobacco [facility] Start: 01-29-2021 End: 05-31-2023 Alcohol intake Not Asked [facility] Start: 01-18-2021 History SDOH Financial 4 [facility] Start: 01-18-2021 End: 05-19-2022 History SDOH Food Worry 1 [facility] Start: 01-18-2021 End: 05-19-2022 History SDOH Transport Med 2 [facility] Start: 2001 Sex Assigned At Not on file C [facility] Start: 05-19-2022 History SDOH Alcohol Std Drinks 98 [facility] Start: 05-19-2022 History SDOH Social Connections Phone 5 [facility] Start: 05-19-2022 History SDOH Social Connections Get Together 3 [facility] Start: 05-19-2022 History SDOH Physica l Activity DPW 6 [facility] Start: 11-16-2017 End: 05-31-2023 Tobacco use and exposure Smokeless tobacco non-user [facility] Start: 2001 Sex Assigned At Male W [facility] Start: 05-31-2023 End: 12-11-2023 [facility] Start: 05-31-2023 End: 12-11-2023 Tobacco use panel [facility] Do you belong to any clubs or organizations such as buddhism groups, unions, fraternal or athletic groups, or school groups? No [facility] Are you now , , , , never or living with a partner? Refused [facility] How often to you hav e a drink containing alcohol? Never [facility] How many standard dr inks containing alcohol do you have on a typical day? Patient refused [facility] How hard is it for y ou to pay for the very basics like food, housing, medical care, and heating Somewhat hard [facility] Do you feel stress - tense, restless, nervous, or anxious, or unable to sleep at night because your mind is troubled all the time - these days [OSQ] Very much [facility] (I/We) worried wheth er (my/our) food would run out before (I/we) got money to buy more. Sometimes true [facility] Start: 02-09-2024 Tobacco smoking stat us TNIS Smokes tobacco daily [facility] History of tobacco use Cigarette Smoker O [facility] Start: 02-09-2024 Alcoholic beverage intake Ex-drinker (finding) [facility] Are you now , , , , never or living with a partner? Living with partner [facility] How often to you hav e a drink containing alcohol? Monthly or less [facility] How many standard dr inks containing alcohol do you have on a typical day? 1 or 2 [facility] How hard is it for y ou to pay for the very basics like food, housing, medical care, and heating Very hard [facility] (I/We) worried wheth er (my/our) food would run out before (I/we) got money to buy more. Often true [facility] Start: 03-24-2025 Alcoholic beverage intake Curr ent drinker of alcohol (finding) [facility] Start: 03-24-2025 Alcohol Comment 1 drink every couple months [facility] Functional Status Date Assessment Result Facility 06-13-2015 Are you deaf, or do you have serious difficulty hearing No 06/13/2015 12:58 PM Kelli Ying RN No [facility] 06-13-2015 Are you blind, or do you have serious difficulty seeing, even when wearing glasses No 06/13/2015 12:58 PM Kelli Ying RN No [facility] 06-13-2015 Do you have serious difficulty walking or climbing stairs No 06/13/2015 12:58 PM Kelli Ying RN No [facility] 06-13-2015 Do you have difficul ty dressing or bathing No 06/13/2015 12:58 PM Kelli Ying RN No [facility] Mental Status Date Assessment Result Facility 06-13-2015 Because of a physica l, mental, or emotional condition, do you have serious difficulty concentrating, remembering, or making decisions No 06/13/2015 12:58 PM Kelli Ying RN No [facility] Clinical Notes 04-02-2022 to 05-30-2025 Telephone Encounter - Lizzeth Santos MD - 05/30/2025 2:49 PM EDTTelephone Encounter - Lizzeth Santos MD - 05/30/2025 2:49 PM EDTBLizzeth portillo MD - 03/24/2025 1:15 PM EDT Note Date & Type Note Facility 05-30-2025 Telephone encounter Note Patient did not complete their urine drug screen when requested, so I cannot send in a refill for their controlled substance. [facility] 05-30-2025 Miscellaneous Notes Patient did not complete their urine drug screen when requested, so I cannot send in a refill for their controlled substance. Prescription Refill Information The patient has been identified by name and date of : Yes Caregiver verified no other encounters exist for this prescription request: Yes Caregiver confirmed with patient/requestor that no other refills are due, in the near future, with this provider at this time: Yes The last office visit in the department: 03/24/25 Does the patient have a future office visit with this provider/department: No Requested Prescriptions Pending Prescriptions Disp Refills amphetamine-dextroamphetamine XR (ADDERALL XR) 20 mg capsule 30 capsule 0 Sig: Take 1 capsule by mouth once daily for 30 days. Estella Arellano LPN May 30, 2025 1:54 PM documented in this encounter [facility] 05-30-2025 Telephone encounter Note Prescription Refill Information The patient has been identified by name and date of : Yes Caregiver verified no other encounters exist for this prescription request: Yes Caregiver confirmed with patient/requestor that no other refills are due, in the near future, with this provider at this time: Yes The last office visit in the department: 03/24/25 Does the patient have a future office visit with this provider/department: No Requested Prescriptions Pending Prescriptions Disp Refills amphetamine-dextroamphetamine XR (ADDERALL XR) 20 mg capsule 30 capsule 0 Sig: Take 1 capsule by mouth once daily for 30 days. Estella Arellano LPN May 30, 2025 1:54 PM [facility] 05-09-2025 Telephone encounter Note See 04/23/25 message. Patient has failed to complete his urine drug screen. Meds cannot by law be refilled. Maren Trinh MA [facility] 05-09-2025 Miscellaneous Notes See 04/23/25 message. Patient has failed to complete his urine drug screen. Meds cannot by law be refilled. Maren Trinh MA documented in this encounter [facility] 04-25-2025 Telephone encounter Note Patient aware please see 04/23/25 refill request notes. Lulu Parker LPN [facility] 04-25-2025 Miscellaneous Notes Patient aware please see 04/23/25 refill request notes. Lulu Parker LPN New orders placed for urine drug screen. Needs to complete in next 24 hours. documented in this encounter [facility] 04-25-2025 Telephone encounter Note New orders placed for urine drug screen. Needs to complete in next 24 hours. [facility] 03-24-2025 Note HNO ID: [id number] Author: LIZZETH SANTOS MD Service: ? Author Type: Physician Type: Progress Notes Filed: 03/28/2025 08:21 Note Text: Chief Complaint Patient presents with: Establish Care: Peds transfer HPI Kwabena Aparicio is a 24 year old male who presents here today for Above Complaints. Previous PCP: Dr. Pickens with last OV 12/2022. Patient has been in good health without recent hospitalizations, ER visits. No concerns today. ADD: Current Treatment: Adderall XR 25mg daily. Last dose this morning. Feels treatment is working well: Yes. Weight loss: No. Insomnia: No. GASTROENTEROLOGY complaints: No. Tremor: No. Mood disorder: No. Chest pain/Palpitations: No Aware of risks associated with controlled substance use: No. Hx of misuse/abuse/diversion of meds: No. Patient admits to vaping nicotine and THC and uses marijuana. Not interested in help with cessation. BMI under 18.5, but weight stable since 05/2203. Past medical history, appointments, medications, allergies reviewed. Previous Medical History PAST MEDICAL HISTORY Diagnosis Date Acne ADHD (attention deficit hyperactivity disorder) Kawasaki disease (HCC) age 3-4 Scoliosis Previous Surgical History PAST SURGICAL HISTORY Procedure Laterality Date NONE Family History FAMILY HISTORY Problem Relation Age of Onset None Mother None Father Cancer Paternal Grandmother Ovarian Patient Allergies ALLERGIES No Known Allergies Current Medications Current Outpatient Medications on File Prior to Visit Medication Sig amphetamine-dextroamphetamine XR (ADDERALL XR) 20 mg capsule Take 1 capsule by mouth once daily for 30 days. amphetamine-dextroamphetamine XR (ADDERALL XR) 5 mg capsule Take 1 capsule by mouth once daily for 30 days. to add to 20 mg for a dose of 25mg daily baclofen 10 mg tablet Take 1 tablet by mouth three times a day as needed. (Patient not taking: Reported on 03/24/2025) meloxicam (MOBIC) 7.5 mg tablet Take 1 tablet by mouth once daily. (Patient not taking: Reported on 03/24/2025) erythromycin (ROMYCIN) 5 mg/gram (0.5 %) ophthalmic ointment Use 1 application in the right eye twice daily. (Patient not taking: Reported on 03/24/2025) No current facility-administered medications on file prior to visit. Social History Social History Tobacco Use Smoking status: Never Smokeless tobacco: Never Vaping Use Vaping status: Never Used Review of Symptoms REVIEW OF SYSTEMS GENERAL: No weight loss, malaise or fevers HEENT: Negative for frequent or significant headaches, No changes in hearing or vision, no nose bleeds or other nasal problems NECK: Negative for lumps, goiter, pain and significant neck swelling RESPIRATORY: Negative for cough, hemoptysis, wheezing, COPD, dyspnea or shortness of breath CARDIOVASCULAR: Negative for chest pain, leg swelling, hypertension, CHF or palpitations GI: No nausea, vomiting, or diarrhea : No history of dysuria, frequency or incontinence MUSCULOSKELETAL: Negative for joint pain or swelling, back pain or muscle pain SKIN: Negative for lesions, rash, and itching PSYCH: Negative for sleep disturbance, mood disorder and recent psychosocial stressors HEMATOLOGY/LYMPHOLOGY: Negative for prolonged bleeding, bruising easily or swollen nodes ENDOCRINE: Negative for cold or heat intolerance, polyuria, polydipsia and goiter NEURO: No history of headaches, syncope, paralysis, seizures or tremors EXAM: BP 100/62 Pulse 99 Ht 180.9 cm (5' 11.22) Wt 59.4 kg (131 lb) SpO2 98% BMI 18.16 kg/m? General Appearance: Well appearing, alert, in no acute distress, well-hydrated, well nourished.. Skin: Skin color, texture, turgor normal, no suspicious rashes or lesions. Head: Normocephalic, no masses, lesions, tenderness or abnormalities. Eyes: Anicteric sclera. Pupils are equally round and reactive to light. Extraocular movements are intact. . Ears: External ears normal, canals clear. Nose/Sinuses: Nares normal, septum midline, mucosa normal, no drainage or sinus tenderness. Oropharynx: Lips, mucosa, and tongue normal, teeth and gums normal, oropharynx normal. Neck: Supple, no adenopathy; thyroid symmetric, normal size, no bruits. Lungs: Lungs clear to auscultation. No wheezing, rhonchi, rales.. Heart: RRR without murmur, gallop, or rubs. No ectopy. Abdomen: Normal abdominal exam, Abdomen soft, non-tender. Bowel sounds normal. No masses, organomegaly. Extremities: No deformities, edema, skin discoloration, clubbing or cyanosis. Good capillary refill. . Peripheral Pulses: Normal. Neurologic: CN II-XII Lymph Nodes: No cervical lymphadenopathy and No supraclavicular lymphadenopathy. Health Maintenance List Meningococcal B Vaccine(1 of 2 - Standard) Never done Depression Screening Never done Anxiety Screening Never done Hepatitis C Screening Never done HIV Screening Never done DTaP,Tdap,Td Vaccine(7 - Td or (more content not included)... [facility] 03-24-2025 History of Presen t illness Narrative Chief Complaint Patient presents with: Establish Care: Peds transfer HPI Kwabena Aparicio is a 24 year old male who presents here today for Above Complaints. Previous PCP: Dr. Pickens with last OV 12/2022. Patient has been in good health without recent hospitalizations, ER visits. No concerns today. ADD: Current Treatment: Adderall XR 25mg daily. Last dose this morning. Feels treatment is working well: Yes. Weight loss: No. Insomnia: No. GASTROENTEROLOGY complaints: No. Tremor: No. Mood disorder: No. Chest pain/Palpitations: No Aware of risks associated with controlled substance use: No. Hx of misuse/abuse/diversion of meds: No. Patient admits to vaping nicotine and THC and uses marijuana. Not interested in help with cessation. BMI under 18.5, but weight stable since 05/2203. Past medical history, appointments, medications, allergies reviewed. Previous Medical History PAST MEDICAL HISTORY Diagnosis Date Acne ADHD (attention deficit hyperactivity disorder) Kawasaki disease (HCC) age 3-4 Scoliosis Previous Surgical History PAST SURGICAL HISTORY Procedure Laterality Date NONE Family History FAMILY HISTORY Problem Relation Age of Onset None Mother None Father Cancer Paternal Grandmother Ovarian Patient Allergies ALLERGIES No Known Allergies Current Medications Current Outpatient Medications on File Prior to Visit Medication Sig amphetamine-dextroamphetamine XR (ADDERALL XR) 20 mg capsule Take 1 capsule by mouth once daily for 30 days. amphetamine-dextroamphetamine XR (ADDERALL XR) 5 mg capsule Take 1 capsule by mouth once daily for 30 days. to add to 20 mg for a dose of 25mg daily baclofen 10 mg tablet Take 1 tablet by mouth three times a day as needed. (Patient not taking: Reported on 03/24/2025) meloxicam (MOBIC) 7.5 mg tablet Take 1 tablet by mouth once daily. (Patient not taking: Reported on 03/24/2025) erythromycin (ROMYCIN) 5 mg/gram (0.5 %) ophthalmic ointment Use 1 application in the right eye twice daily. (Patient not taking: Reported on 03/24/2025) No current facility-administered medications on file prior to visit. Social History Social History Tobacco Use Smoking status: Never Smokeless tobacco: Never Vaping Use Vaping status: Never Used Review of Symptoms REVIEW OF SYSTEMS GENERAL: No weight loss, malaise or fevers HEENT: Negative for frequent or significant headaches, No changes in hearing or vision, no nose bleeds or other nasal problems NECK: Negative for lumps, goiter, pain and significant neck swelling RESPIRATORY: Negative for cough, hemoptysis, wheezing, COPD, dyspnea or shortness of breath CARDIOVASCULAR: Negative for chest pain, leg swelling, hypertension, CHF or palpitations GI: No nausea, vomiting, or diarrhea : No history of dysuria, frequency or incontinence MUSCULOSKELETAL: Negative for joint pain or swelling, back pain or muscle pain SKIN: Negative for lesions, rash, and itching PSYCH: Negative for sleep disturbance, mood disorder and recent psychosocial stressors HEMATOLOGY/LYMPHOLOGY: Negative for prolonged bleeding, bruising easily or swollen nodes ENDOCRINE: Negative for cold or heat intolerance, polyuria, polydipsia and goiter NEURO: No history of headaches, syncope, paralysis, seizures or tremors EXAM: BP 100/62 Pulse 99 Ht 180.9 cm (5' 11.22) Wt 59.4 kg (131 lb) SpO2 98% BMI 18.16 kg/m General Appearance: Well appearing, alert, in no acute distress, well-hydrated, well nourished.. Skin: Skin color, texture, turgor normal, no suspicious rashes or lesions. Head: Normocephalic, no masses, lesions, tenderness or abnormalities. Eyes: Anicteric sclera. Pupils are equally round and reactive to light. Extraocular movements are intact. . Ears: External ears normal, canals clear. Nose/Sinuses: Nares normal, septum midline, mucosa normal, no drainage or sinus tenderness. Oropharynx: Lips, mucosa, and tongue normal, teeth and gums normal, oropharynx normal. Neck: Supple, no adenopathy; thyroid symmetric, normal size, no bruits. Lungs: Lungs clear to auscultation. No wheezing, rhonchi, rales.. Heart: RRR without murmur, gallop, or rubs. No ectopy. Abdomen: Normal abdominal exam, Abdomen soft, non-tender. Bowel sounds normal. No masses, organomegaly. Extremities: No deformities, edema, skin discoloration, clubbing or cyanosis. Good capillary refill. . Peripheral Pulses: Normal. Neurologic: CN II-XII Lymph Nodes: No cervical lymphadenopathy and No supraclavicular lymphadenopathy. Health Maintenance List Meningococcal B Vaccine(1 of 2 - Standard) Never done Depression Screening Never done Anxiety Screening Never done Hepatitis C Screening Never done HIV Screening Never done DTaP,Tdap,Td Vaccine(7 - Td or Tdap) due on 06/26/2022 Influenza Vaccine(1) due on 07/31/2024 Covid-19 Vaccine(2 - 2023- season) due on 07/31/2024 Hepatitis B Vaccine Completed HPV Vaccine Completed ASSESSMENT/PLAN: 1. Encounter for medical examination to establish care - ICD9: V70.9, ICD10: Z00.00 (primary diagnosis) - Counseled on healthy diet and regular exercise - Counseled on alcohol intake and health risks - Discussed safe sex practices and avoidance of STIs - Follow up for annual exam in one year - COMPLETE BLOOD COUNT AND DIFFERENTIAL - COMPREHENSIVE METABOLIC PANEL - LIPID PANEL, NONFASTING 2. Attention deficit hyperactivity disorder (ADHD), predominantly inattentive type - ICD9: 314.00, ICD10: F90.0 Symptoms controlled on stimulant, but with his marijuana use he would be in violation of our controlled substance agreement if I were to give refills. Discussed non stimulant treatment vs marijuana cessation. Patient will work on cessation and contact our office when successful. 3. Marijuana use - ICD9: 305.20, ICD10: F12.90 Refusing help with cessation. Will repeat drug screen a few weeks after he is able to quit. 4. Vapes nicotine containing substance - ICD9: 305.1, ICD10: Z72.0 - Cessation encouraged. - Physiologic and physical aspects of tobacco addiction as well as strategies for quitting were discussed. - Counseling was given focusing on the harmful effects of this addiction especially given the patient's medical condition(s) which will be worsened because of the chemicals in tobacco. 5. Underweight (BMI < 18.5) - ICD9: 783.22, V85.0, ICD10: R63.6, Z68.1 Weight stable for years. Obtain labs as ordered. Work on healthy diet and exercise. 6. Screening for HIV (human immunodeficiency virus) - ICD9: V73.89, ICD10: Z11.4 - HIV 1/2 COMBO WITH REFLEX TO DIFFERENTIATION 7. Special screening examination for viral disease - ICD9: V73.99, ICD10: Z11.59 - HEPATITIS C ANTIBODY IA WITH CONFIRMATION Lzizeth Santos MD documented in this encounter [facility] 03-13-2025 Telephone encounter Note The following approved medication requests have been transmitted electronically. Requested Prescriptions Pending Prescriptions Disp Refills amphetamine-dextroamphetamine XR (ADDERALL XR) 20 mg capsule 30 capsule 0 Sig: Take 1 capsule by mouth once daily for 30 days. amphetamine-dextroamphetamine XR (ADDERALL XR) 5 mg capsule 30 capsule 0 Sig: Take 1 capsule by mouth once daily for 30 days. to add to 20 mg for a dose of 25mg daily Arturo Pickens MD [facility] 03-13-2025 Miscellaneous Notes The following approved medication requests have been transmitted electronically. Requested Prescriptions Pending Prescriptions Disp Refills amphetamine-dextroamphetamine XR (ADDERALL XR) 20 mg capsule 30 capsule 0 Sig: Take 1 capsule by mouth once daily for 30 days. amphetamine-dextroamphetamine XR (ADDERALL XR) 5 mg capsule 30 capsule 0 Sig: Take 1 capsule by mouth once daily for 30 days. to add to 20 mg for a dose of 25mg daily Arturo Pickens MD Last WCC: greater than one year ago and appointment scheduled for 03/24/25 with Adult Med. Last ADHD / Med Check visit: 12/11/23 Verify RX Benefits Completed Last medication refill date: 02/13/25 Requesting 30 day supply Retail pharmacy updated: Completed Patient aware RX will be sent to pharmacy. No need to notify patient. Health Maintenance due: Meningococcal B Vaccine(1 of 2 - Standard) Never done Depression Screening Never done Anxiety Screening Never done Hepatitis C Screening Never done HIV Screening Never done DTaP,Tdap,Td Vaccine(7 - Td or Tdap) due on 06/26/2022 Influenza Vaccine(1) due on 07/31/2024 Covid-19 Vaccine( season) due on 07/31/2024 Kelli Schaefer RN documented in this encounter [facility] 03-13-2025 Telephone encounter Note Last WCC: greater than one year ago and appointment scheduled for 03/24/25 with Adult Med. Last ADHD / Med Check visit: 12/11/23 Verify RX Benefits Completed Last medication refill date: 02/13/25 Requesting 30 day supply Retail pharmacy updated: Completed Patient aware RX will be sent to pharmacy. No need to notify patient. Health Maintenance due: Meningococcal B Vaccine(1 of 2 - Standard) Never done Depression Screening Never done Anxiety Screening Never done Hepatitis C Screening Never done HIV Screening Never done DTaP,Tdap,Td Vaccine(7 - Td or Tdap) due on 06/26/2022 Influenza Vaccine(1) due on 07/31/2024 Covid-19 Vaccine( season) due on 07/31/2024 Kelli Schaefer RN [facility] 02-13-2025 Telephone encounter Note The following approved medication requests have been transmitted electronically. Requested Prescriptions Pending Prescriptions Disp Refills amphetamine-dextroamphetamine XR (ADDERALL XR) 20 mg capsule 30 capsule 0 Sig: Take 1 capsule by mouth once daily for 30 days. amphetamine-dextroamphetamine XR (ADDERALL XR) 5 mg capsule 30 capsule 0 Sig: Take 1 capsule by mouth once daily for 30 days. to add to 20 mg for a dose of 25mg daily Arturo Pickens MD [facility] 02-13-2025 Miscellaneous Notes The following approved medication requests have been transmitted electronically. Requested Prescriptions Pending Prescriptions Disp Refills amphetamine-dextroamphetamine XR (ADDERALL XR) 20 mg capsule 30 capsule 0 Sig: Take 1 capsule by mouth once daily for 30 days. amphetamine-dextroamphetamine XR (ADDERALL XR) 5 mg capsule 30 capsule 0 Sig: Take 1 capsule by mouth once daily for 30 days. to add to 20 mg for a dose of 25mg daily Arturo Pickens MD Last WCC: greater than one year ago and appointment scheduled for 03/23/25 to Adult med Last ADHD / Med Check visit: 12/11/2023 Verify RX Benefits Completed Last medication refill date: Requesting 30 day supply Retail pharmacy updated: Completed Patient aware RX will be sent to pharmacy. No need to notify patient. Health Maintenance due: Meningococcal B Vaccine(1 of 2 - Standard) Never done Depression Screening Never done Anxiety Screening Never done Hepatitis C Screening Never done HIV Screening Never done DTaP,Tdap,Td Vaccine(7 - Td or Tdap) due on 06/26/2022 Influenza Vaccine(1) due on 07/31/2024 Covid-19 Vaccine(2 - 2023-25 season) due on 07/31/2024 Kaur Rand LPN documented in this encounter [facility] 02-11-2025 Telephone encounter Note Last WCC: greater than one year ago and appointment scheduled for 03/23/25 to Adult med Last ADHD / Med Check visit: 12/11/2023 Verify RX Benefits Completed Last medication refill date: Requesting 30 day supply Retail pharmacy updated: Completed Patient aware RX will be sent to pharmacy. No need to notify patient. Health Maintenance due: Meningococcal B Vaccine(1 of 2 - Standard) Never done Depression Screening Never done Anxiety Screening Never done Hepatitis C Screening Never done HIV Screening Never done DTaP,Tdap,Td Vaccine(7 - Td or Tdap) due on 06/26/2022 Influenza Vaccine(1) due on 07/31/2024 Covid-19 Vaccine(2 - 2023- season) due on 07/31/2024 Kaur Rand LPN [facility] 01-02-2025 Telephone encounter Note The following approved medication requests have been transmitted electronically. Requested Prescriptions Pending Prescriptions Disp Refills amphetamine-dextroamphetamine XR (ADDERALL XR) 20 mg capsule 30 capsule 0 Sig: Take 1 capsule by mouth once daily for 30 days. amphetamine-dextroamphetamine XR (ADDERALL XR) 5 mg capsule 30 capsule 0 Sig: Take 1 capsule by mouth once daily for 30 days. to add to 20 mg for a dose of 25mg daily Arturo Pickens MD [facility] 01-02-2025 Miscellaneous Notes The following approved medication requests have been transmitted electronically. Requested Prescriptions Pending Prescriptions Disp Refills amphetamine-dextroamphetamine XR (ADDERALL XR) 20 mg capsule 30 capsule 0 Sig: Take 1 capsule by mouth once daily for 30 days. amphetamine-dextroamphetamine XR (ADDERALL XR) 5 mg capsule 30 capsule 0 Sig: Take 1 capsule by mouth once daily for 30 days. to add to 20 mg for a dose of 25mg daily Arturo Pickens MD Last ADHD / Med Check visit: 01/16/2024 and has appointment with Margaret 03/24/2025 Verify RX Benefits Completed Last medication refill date: 11/25/2024 Requesting 30 day supply Retail pharmacy updated: Completed Patient aware RX will be sent to pharmacy. No need to notify patient. Health Maintenance due: Meningococcal B Vaccine: Consider Based On Risk(1 of 2 - Patient Seeks Protection) Never done Depression Screening Never done Anxiety Screening Never done Hepatitis C Screening Never done HIV Screening Never done DTaP,Tdap,Td Vaccine(7 - Td or Tdap) due on 06/26/2022 Influenza Vaccine(1) due on 07/31/2024 Covid-19 Vaccine( season) due on 07/31/2024 Reza Wang RN documented in this encounter [facility] 01-02-2025 Telephone encounter Note Last ADHD / Med Check visit: 01/16/2024 and has appointment with Margaret 03/24/2025 Verify RX Benefits Completed Last medication refill date: 11/25/2024 Requesting 30 day supply Retail pharmacy updated: Completed Patient aware RX will be sent to pharmacy. No need to notify patient. Health Maintenance due: Meningococcal B Vaccine: Consider Based On Risk(1 of 2 - Patient Seeks Protection) Never done Depression Screening Never done Anxiety Screening Never done Hepatitis C Screening Never done HIV Screening Never done DTaP,Tdap,Td Vaccine(7 - Td or Tdap) due on 06/26/2022 Influenza Vaccine(1) due on 07/31/2024 Covid-19 Vaccine( season) due on 07/31/2024 Reza Wang RN [facility] 11-25-2024 Telephone encounter Note The following approved medication requests have been transmitted electronically. Requested Prescriptions Pending Prescriptions Disp Refills amphetamine-dextroamphetamine XR (ADDERALL XR) 20 mg capsule 30 capsule 0 Sig: Take 1 capsule by mouth once daily for 30 days. amphetamine-dextroamphetamine XR (ADDERALL XR) 5 mg capsule 30 capsule 0 Sig: Take 1 capsule by mouth once daily for 30 days. to add to 20 mg for a dose of 25mg daily Arturo Pickens MD [facility] 11-25-2024 Miscellaneous Notes The following approved medication requests have been transmitted electronically. Requested Prescriptions Pending Prescriptions Disp Refills amphetamine-dextroamphetamine XR (ADDERALL XR) 20 mg capsule 30 capsule 0 Sig: Take 1 capsule by mouth once daily for 30 days. amphetamine-dextroamphetamine XR (ADDERALL XR) 5 mg capsule 30 capsule 0 Sig: Take 1 capsule by mouth once daily for 30 days. to add to 20 mg for a dose of 25mg daily Arturo Pickens MD Last WCC: greater than one year ago Last ADHD / Med Check visit: 01-22-23 -- Verify RX Benefits Completed Last medication refill date: 09/2024-appt with adult med 02/2025 Requesting 30 day supply Retail pharmacy updated: Completed Patient aware RX will be sent to pharmacy. No need to notify patient. Health Maintenance due: Meningococcal B Vaccine: Consider Based On Risk(1 of 2 - Patient Seeks Protection) Never done Depression Screening Never done Anxiety Screening Never done Hepatitis C Screening Never done HIV Screening Never done DTaP,Tdap,Td Vaccine(7 - Td or Tdap) due on 06/26/2022 Influenza Vaccine(1) due on 07/31/2024 Covid-19 Vaccine(2 - 2023-25 season) due on 07/31/2024 Phill Godwin RN documented in this encounter [facility] 11-24-2024 Telephone encounter Note Last WCC: greater than one year ago Last ADHD / Med Check visit: 01-22-23 -- Verify RX Benefits Completed Last medication refill date: 09/2024-appt with adult med 02/2025 Requesting 30 day supply Retail pharmacy updated: Completed Patient aware RX will be sent to pharmacy. No need to notify patient. Health Maintenance due: Meningococcal B Vaccine: Consider Based On Risk(1 of 2 - Patient Seeks Protection) Never done Depression Screening Never done Anxiety Screening Never done Hepatitis C Screening Never done HIV Screening Never done DTaP,Tdap,Td Vaccine(7 - Td or Tdap) due on 06/26/2022 Influenza Vaccine(1) due on 07/31/2024 Covid-19 Vaccine(2 - 2023- season) due on 07/31/2024 Phill Godwin RN [facility] 10-06-2024 Telephone encounter Note The following approved medication requests have been transmitted electronically. Requested Prescriptions Signed Prescriptions Disp Refills amphetamine-dextroamphetamine XR (ADDERALL XR) 20 mg capsule 30 capsule 0 Sig: Take 1 capsule by mouth once daily for 30 days. Authorizing Provider: ARTURO PICKENS amphetamine-dextroamphetamine XR (ADDERALL XR) 5 mg capsule 30 capsule 0 Sig: Take 1 capsule by mouth once daily for 30 days. to add to 20 mg for a dose of 25mg daily Authorizing Provider: ARTURO PICKENS MD [facility] 10-06-2024 Miscellaneous Notes The following approved medication requests have been transmitted electronically. Requested Prescriptions Signed Prescriptions Disp Refills amphetamine-dextroamphetamine XR (ADDERALL XR) 20 mg capsule 30 capsule 0 Sig: Take 1 capsule by mouth once daily for 30 days. Authorizing Provider: ARTURO PICKENS amphetamine-dextroamphetamine XR (ADDERALL XR) 5 mg capsule 30 capsule 0 Sig: Take 1 capsule by mouth once daily for 30 days. to add to 20 mg for a dose of 25mg daily Authorizing Provider: ARTURO PICKENS MD Call received from [facility]. Patient trying to get established with adult primary care. The soonest they could get an appointment was 03/24/25. Patient questions if refills can be provided for his ADHD medication since he can't get in until February 2025 Patient phones requesting refills as follows: Requested Prescriptions Pending Prescriptions Disp Refills amphetamine-dextroamphetamine XR (ADDERALL XR) 20 mg capsule 30 capsule 0 Sig: Take 1 capsule by mouth once daily for 30 days. amphetamine-dextroamphetamine XR (ADDERALL XR) 5 mg capsule 30 capsule 0 Sig: Take 1 capsule by mouth once daily for 30 days. to add to 20 mg for a dose of 25mg daily Please review and advise. Veronika Anderson RN documented in this encounter [facility] 10-06-2024 Telephone encounter Note Call received from [facility]. Patient trying to get established with adult primary care. The soonest they could get an appointment was 03/24/25. Patient questions if refills can be provided for his ADHD medication since he can't get in until February 2025 Patient phones requesting refills as follows: Requested Prescriptions Pending Prescriptions Disp Refills amphetamine-dextroamphetamine XR (ADDERALL XR) 20 mg capsule 30 capsule 0 Sig: Take 1 capsule by mouth once daily for 30 days. amphetamine-dextroamphetamine XR (ADDERALL XR) 5 mg capsule 30 capsule 0 Sig: Take 1 capsule by mouth once daily for 30 days. to add to 20 mg for a dose of 25mg daily Please review and advise. Veronika Anderson RN [facility] 09-05-2024 Telephone encounter Note The following approved medication requests have been transmitted electronically. Requested Prescriptions Pending Prescriptions Disp Refills amphetamine-dextroamphetamine XR (ADDERALL XR) 5 mg capsule 30 capsule 0 Sig: Take 1 capsule by mouth once daily for 30 days. to add to 20 mg for a dose of 25mg daily amphetamine-dextroamphetamine XR (ADDERALL XR) 20 mg capsule 30 capsule 0 Sig: Take 1 capsule by mouth once daily for 30 days. Arturo Pickens MD [facility] 09-05-2024 Miscellaneous Notes The following approved medication requests have been transmitted electronically. Requested Prescriptions Pending Prescriptions Disp Refills amphetamine-dextroamphetamine XR (ADDERALL XR) 5 mg capsule 30 capsule 0 Sig: Take 1 capsule by mouth once daily for 30 days. to add to 20 mg for a dose of 25mg daily amphetamine-dextroamphetamine XR (ADDERALL XR) 20 mg capsule 30 capsule 0 Sig: Take 1 capsule by mouth once daily for 30 days. Arturo Pickens MD Please see below note from patient. Are you willing to provide refill(s)? SHAWANDA Ma, I had an appointment on the 4th to meet with the new doctor, but only found out 20 minutes prior that the meeting wasn t going to be online. I wouldn t have made it to the appointment. I called this morning about finding a new one, but was told I d have to wait until February. documented in this encounter [facility] 09-05-2024 Telephone encounter Note Please see below note from patient. Are you willing to provide refill(s)? SHAWANDA Ma, I had an appointment on the 4th to meet with the new doctor, but only found out 20 minutes prior that the meeting wasn t going to be online. I wouldn t have made it to the appointment. I called this morning about finding a new one, but was told I d have to wait until February. [facility] 09-02-2024 Telephone encounter Note Patient has appointment with Dr. Santos today to establish care Veronika Anderson RN [facility] 09-02-2024 Miscellaneous Notes Patient has appointment with Dr. Santos today to establish care Veronika Anderson RN documented in this encounter [facility] 07-25-2024 Telephone encounter Note The following approved medication requests have been transmitted electronically. Requested Prescriptions Pending Prescriptions Disp Refills amphetamine-dextroamphetamine XR (ADDERALL XR) 20 mg capsule [Pharmacy Med Name: Amphetamine-Dextroamphet ER Oral Capsule Extended Release 24 Hour 20 MG] 30 capsule 0 Sig: take 1 capsule by mouth once daily Arturo Pickens MD [facility] 07-25-2024 Miscellaneous Notes The following approved medication requests have been transmitted electronically. Requested Prescriptions Pending Prescriptions Disp Refills amphetamine-dextroamphetamine XR (ADDERALL XR) 20 mg capsule [Pharmacy Med Name: Amphetamine-Dextroamphet ER Oral Capsule Extended Release 24 Hour 20 MG] 30 capsule 0 Sig: take 1 capsule by mouth once daily Arturo Pickens MD Last WCC: 01/28/2021 Last ADHD / Med Check visit: 01/16/2023 Verify RX Benefits Completed Last medication refill date: 2024 Requesting 30 day supply Retail pharmacy updated: Completed Patient aware RX will be sent to pharmacy. No need to notify patient. Health Maintenance due: Meningococcal B Vaccine: Consider Based On Risk(1 of 2 - Patient Seeks Protection) Never done Depression Screening Never done Anxiety Screening Never done Hepatitis C Screening Never done HIV Screening Never done DTaP,Tdap,Td Vaccine(7 - Td or Tdap) due on 06/26/2022 Covid-19 Vaccine(2 - 2022- season) due on 07/31/2023 Sadia Nichole MA documented in this encounter [facility] 07-25-2024 Telephone encounter Note Last WCC: 01/28/2021 Last ADHD / Med Check visit: 01/16/2023 Verify RX Benefits Completed Last medication refill date: 2024 Requesting 30 day supply Retail pharmacy updated: Completed Patient aware RX will be sent to pharmacy. No need to notify patient. Health Maintenance due: Meningococcal B Vaccine: Consider Based On Risk(1 of 2 - Patient Seeks Protection) Never done Depression Screening Never done Anxiety Screening Never done Hepatitis C Screening Never done HIV Screening Never done DTaP,Tdap,Td Vaccine(7 - Td or Tdap) due on 06/26/2022 Covid-19 Vaccine(2 - 2022-24 season) due on 07/31/2023 Sadia Nichole MA [facility] 2024 Telephone encounter Note The following approved medication requests have been transmitted electronically. Requested Prescriptions Pending Prescriptions Disp Refills amphetamine-dextroamphetamine XR (ADDERALL XR) 20 mg capsule 30 capsule 0 Sig: Take 1 capsule by mouth once daily for 30 days. amphetamine-dextroamphetamine XR (ADDERALL XR) 5 mg capsule 30 capsule 0 Sig: Take 1 capsule by mouth once daily for 30 days. to add to 20 mg for a dose of 25mg daily Arturo Pickens MD [facility] 2024 Miscellaneous Notes The following approved medication requests have been transmitted electronically. Requested Prescriptions Pending Prescriptions Disp Refills amphetamine-dextroamphetamine XR (ADDERALL XR) 20 mg capsule 30 capsule 0 Sig: Take 1 capsule by mouth once daily for 30 days. amphetamine-dextroamphetamine XR (ADDERALL XR) 5 mg capsule 30 capsule 0 Sig: Take 1 capsule by mouth once daily for 30 days. to add to 20 mg for a dose of 25mg daily Arturo Pickens MD please send to alternate pharmacy documented in this encounter [facility] 2024 Telephone encounter Note please send to [facility] 06-24-2024 Telephone encounter Note The following approved medication requests have been transmitted electronically. Requested Prescriptions Pending Prescriptions Disp Refills amphetamine-dextroamphetamine XR (ADDERALL XR) 20 mg capsule 30 capsule 0 Sig: Take 1 capsule by mouth once daily for 30 days. amphetamine-dextroamphetamine XR (ADDERALL XR) 5 mg capsule 30 capsule 0 Sig: Take 1 capsule by mouth once daily for 30 days. to add to 20 mg for a dose of 25mg daily Arturo Pickens MD [facility] 06-24-2024 Miscellaneous Notes The following approved medication requests have been transmitted electronically. Requested Prescriptions Pending Prescriptions Disp Refills amphetamine-dextroamphetamine XR (ADDERALL XR) 20 mg capsule 30 capsule 0 Sig: Take 1 capsule by mouth once daily for 30 days. amphetamine-dextroamphetamine XR (ADDERALL XR) 5 mg capsule 30 capsule 0 Sig: Take 1 capsule by mouth once daily for 30 days. to add to 20 mg for a dose of 25mg daily Arturo Pickens MD I would not refill any medications until after patient is established with me. Pt has appt for 09/02 to establish care with Danielle. Pt is requesting refill for aderal 20mg and 5 mg. Not sure if Kathy can still fill or Danielle. Please advise documented in this encounter [facility] 06-23-2024 Telephone encounter Note I would not refill any medications until after patient is established with me. [facility] Work Phone: 06-23-2024 Telephone encounter Note Pt has appt for 09/02 to establish care with Danielle. Pt is requesting refill for aderal 20mg and 5 mg. Not sure if Kathy can still fill or Danielle. Please advise [facility] 02-24-2024 Miscellaneous Notes The following approved medication requests have been transmitted electronically. Requested Prescriptions Pending Prescriptions Disp Refills amphetamine-dextroamphetamine XR (ADDERALL XR) 5 mg capsule 30 capsule 0 Sig: Take 1 capsule by mouth once daily for 30 days. to add to 20 mg for a dose of 25mg daily amphetamine-dextroamphetamine XR (ADDERALL XR) 20 mg capsule 30 capsule 0 Sig: Take 1 capsule by mouth once daily for 30 days. Arturo Pickens MD Last WC: greater than one year ago Last ADHD / Med Check visit: 12/11/23 Verify RX Benefits Completed Last medication refill date: 01/14/24 Requesting 30 day supply Retail pharmacy updated: Completed Patient aware RX will be sent to pharmacy. No need to notify patient.Hi B Health Maintenance due: Meningococcal B Vaccine: Consider Based On Risk(1 of 2 - Patient Seeks Protection) Never done Hepatitis C Screening Never done HIV Screening Never done DTaP,Tdap,Td Vaccine(7 - Td or Tdap) due on 06/26/2022 Influenza Vaccine(1) due on 07/31/2023 Covid-19 Vaccine(2 - season) due on 07/31/2023 Depression Assessment Never done Kelli Schaefer RN documented in this encounter [facility] 02-09-2024 Emergency department Note Patient verbalized understanding of home care. Patient states has PCP will follow up. Denies CP at this time [facility] 02-09-2024 Emergency department Note Patient verbalized understanding of home care. Patient states has PCP will follow up. Denies CP at this time Patient tolerated food without difficulty ED patient listed as having no insurance. Patients AVS was updated with [facility]'s physicians assistance program, along with phone numbers to call and apply for Medicaid. [facility] resources for medication and free clinics also provided in patients AVS. If patient is going to be admitted then a financial counselor will meet with patient to assist with applicaton. Sidra MARQUEZ RN director radiation oncology [phone] ED Staffing Note Chief complaint: Chief Complaint Patient presents with Chest Pain Kwabena Aparicio is a 23 y.o. year old male who presents with presents with emesis. Pt states that he took 6 edibles last night. Following ingestion pt reports lightheaded sensation associated with emesis (NBNB). Denies any additional ingestion. No SI/HI. No fever, sob, cough, chest pain. Pt states that he has had edibles in the past but has never ingested this much at one time. Pt states that he continued to ingest the edibles because he did not think that they were working. Pt states he then had the sensation that all of the edibles hit me at the same time. Past Medical History: Diagnosis Date ADHD No past surgical history on file. Social History Socioeconomic History Marital status: Single Spouse name: Not on file Number of children: Not on file Years of education: Not on file Highest education level: Not on file Occupational History Not on file Tobacco Use Smoking status: Every Day Types: Cigarettes Smokeless tobacco: Never Substance and Sexual Activity Alcohol use: Not Currently Drug use: Yes Types: Marijuana, Psilocybin Sexual activity: Yes Partners: Female Other Topics Concern Not on file Social History Narrative Not on file Social Determinants of Health Financial Resource Strain: Medium Risk (05/18/2022) Received from [facility] Overall Financial Resource Strain (CARDIA) Difficulty of Paying Living Expenses: Somewhat hard Food Insecurity: Food Insecurity Present (05/18/2022) Received from [facility] Hunger Vital Sign Worried About Running Out of Food in the Last Year: Sometimes true Ran Out of Food in the Last Year: Sometimes true Transportation Needs: No Transportation Needs (05/18/2022) Received from [facility] PRAPARE - Transportation Lack of Transportation (Medical): No Lack of Transportation (Non-Medical): No Physical Activity: Unknown (05/18/2022) Received from [facility] Exercise Vital Sign Days of Exercise per Week: 6 days Minutes of Exercise per Session: Patient declined Stress: Stress Concern Present (05/18/2022) Received from [facility] [place] [employer] - Occupational Stress Questionnaire Feeling of Stress : Very much Social Connections: Unknown (05/18/2022) Received from [facility] Social Connection and Isolation Panel [NHANES] Frequency of Communication with Friends and Family: More than three times a week Frequency of Social Gatherings with Friends and Family: Twice a week Attends Pentecostalism Services: Never Active Member of Clubs or Organizations: No Attends Club or Organization Meetings: Never Marital Status: Patient declined Intimate Partner Violence: Not on file Housing Stability: Low Risk (05/18/2022) Received from [facility] Housing Stability Vital Sign Unable to Pay for Housing in the Last Year: No Number of Places Lived in the Last Year: 1 Unstable Housing in the Last Year: No History reviewed. No pertinent family history. Review of systems as per HPI DDx (includes acute life and/or limb threats):: Ingestion, dehydration, electrolyte derangement, Impression: Ingestion (cannabinoid) Plan: Pt presents following acute ingestion of edibles. Pt denies any additional ingestion. Denies self harm. Initially pt had symptoms of nausea/vomiting but symptoms have now abated. VSS. Pt is low risk for ACS. Labs are reassuring. Radiograph with no acute findings. EKG with no acute ischemic changes. Will po challenge and reassess. ED Course: EKG: normal sinus rhythm, rate 100. No acute ST segment changes. Right atrial enlargement Prior medical records were reviewed. All pertinent labs and imaging results were reviewed and interpreted by me. The patient was updated regarding findings, and was re-assessed during ED stay. This patient's history and physical exam were performed by the resident. On 02/09/2024 I saw and examined the patient. I discussed the history and examination with the resident and agree with the plan of care. In addition, I have fully participated in the care of this patient. I have reviewed all pertinent clinical information, including history, physical exam and medical decision making with the resident. Medical Decision Making Amount and/or Complexity of Data Reviewed External Data Reviewed: notes. Labs: ordered. Decision-making details documented in ED Course. Radiology: ordered and independent interpretation performed. Decision-making details documented in ED Course. ECG/medicine tests: ordered and independent interpretation performed. Decision-making details documented in ED Course. Michi Tolbert II, MD 02/09/24 1358 Images from the original note were not included. dEPARTMENT of Emergency Medicine HPI Kwabena Aparicio is a 23 y.o. male with a family member who had an NH in their early 40s presenting with dizziness and vomiting. Patient states he had 6 edibles last night and thereafter had dizziness described as presyncope and 3 episodes of nonbloody nonbilious emesis. Initially the symptoms were worsened by standing and alleviated by lying down. He also states bilateral tinnitus and right eye blurriness. He states he has taken edibles before, but this is the 1st time within the past 3 months. Patient denies fever, shortness of breath, cough, nausea vomiting now, chest pain, other intoxication. PAST MEDICAL HISTORY Past Medical History: Diagnosis Date ADHD SURGICAL HISTORY No past surgical history on file. CURRENT MEDICATIONS Current Outpatient Medications Medication Sig amphetamine-dextroamphetamine 10 MG tablet Take 2 tablets by mouth daily. ALLERGIES No Known Allergies FAMILY HISTORY History reviewed. No pertinent family history. SOCIAL HISTORY Social History Socioeconomic History Marital status: Single Tobacco Use Smoking status: Every Day Types: Cigarettes Smokeless tobacco: Never Substance and Sexual Activity Alcohol use: Not Currently Drug use: Yes Types: Marijuana, Psilocybin Sexual activity: Yes Partners: Female Social Determinants of Health Financial Resource Strain: Medium Risk (05/18/2022) Received from [facility] Overall Financial Resource Strain (CARDIA) Difficulty of Paying Living Expenses: Somewhat hard Food Insecurity: Food Insecurity Present (05/18/2022) Received from [facility] Hunger Vital Sign Worried About Running Out of Food in the Last Year: Sometimes true Ran Out of Food in the Last Year: Sometimes true Transportation Needs: No Transportation Needs (05/18/2022) Received from [facility] PRAPARE - Transportation Lack of Transportation (Medical): No Lack of Transportation (Non-Medical): No Physical Activity: Unknown (05/18/2022) Received from [facility] Exercise Vital Sign Days of Exercise per Week: 6 days Minutes of Exercise per Session: Patient declined Stress: Stress Concern Present (05/18/2022) Received from [facility] [place] [employer] - Occupational Stress Questionnaire Feeling of Stress : Very much Social Connections: Unknown (05/18/2022) Received from [facility] Social Connection and Isolation Panel [NHANES] Frequency of Communication with Friends and Family: More than three times a week Frequency of Social Gatherings with Friends and Family: Twice a week Attends Pentecostalism Services: Never Active Member of Clubs or Organizations: No Attends Club or Organization Meetings: Never Marital Status: Patient declined Housing Stability: Low Risk (05/18/2022) Received from [facility] Housing Stability Vital Sign Unable to Pay for Housing in the Last Year: No Number of Places Lived in the Last Year: 1 Unstable Housing in the Last Year: No PHYSICAL EXAM VITAL SIGNS: BP 125/78 Pulse 83 Temp 97.3 F (36.3 C) (Oral) Resp 18 Ht 1.829 m (6') SpO2 98% Smoking Status Every Day Physical Exam Vitals and nursing note reviewed. Constitutional: General: He is not in acute distress. Appearance: Normal appearance. He is not ill-appearing or diaphoretic. HENT: Head: Normocephalic and atraumatic. Eyes: General: No scleral icterus. Extraocular Movements: Extraocular movements intact. Comments: Pupils are dilated 9 mm bilaterally, equal round and reactive to light Cardiovascular: Rate and Rhythm: Normal rate and regular rhythm. Heart sounds: Normal heart sounds. Pulmonary: Effort: Pulmonary effort is normal. Breath sounds: Normal breath sounds. Chest: Chest wall: No tenderness. Abdominal: General: Abdomen is flat. Palpations: Abdomen is soft. Tenderness: There is no abdominal tenderness. Musculoskeletal: Cervical back: Normal range of motion. Right lower leg: No edema. Left lower leg: No edema. Skin: General: Skin is warm and dry. Neurological: Mental Status: He is alert and oriented to person, place, and time. Comments: CN III, IV, : P dilated, ERRL, EOMI. CN V: facial sensation intact to light touch bilaterally in V1, V2, V3. CN VII: face, smile, eyebrow raise/closure symmetric. CN VIII: hearing equal on both sides. CN IX & X: soft palate elevates symmetrically at midline, no dysarthria. No uvula deviation. CN XI: shoulder shrug full strength bilaterally. CN XII: tongue protrudes midline. Psychiatric: Behavior: Behavior normal. Thought Content: Thought content does not include homicidal or suicidal ideation. ED COURSE & MEDICAL DECISION MAKING Results for orders placed or performed during the hospital encounter of 02/09/24 SARS-COV-2 RAPID Specimen: Fluid/Swab Result Value Ref Range SARS-COV-2 NOT DETECTED NOT DETECTED CHEM 7 (LYTES,BUN,CREA,GLUC) Result Value Ref Range Sodium 136 135 - 145 mmol/L Potassium 3.5 3.5 - 5.0 mmol/L Chloride 101 98 - 108 mmol/L CO2 27 21 - 31 mmol/L Glucose 188 (H) 70 - 99 mg/dL BUN 20 7 - 25 mg/dL Creatinine 1.22 0.70 - 1.30 mg/dL Bun/Crea Ratio 16 Osmolality (Calculated) 293 278 - 305 mOsm/kg Anion Gap 12 7 - 17 mmol/L eGFR, CKD-EPI, Male 86 >=60 mL/min/1.73m2 PHOSPHATE, INORGANIC Result Value Ref Range Phosphorous 4.0 2.2 - 4.6 mg/dL MAGNESIUM Result Value Ref Range Magnesium 2.2 1.6 - 2.6 mg/dL CALCIUM Result Value Ref Range Calcium 9.5 8.6 - 10.5 mg/dL HIGH SENSITIVITY TROPONIN I - SINGLE ORDER Result Value Ref Range hs-Troponin I <3 <53 ng/L CBC AND ELECTRONIC DIFF Result Value Ref Range WBC Count 8.56 3.73 - 10.10 K/uL RBC Count 4.92 4.38 - 5.83 M/uL Hemoglobin 15.6 13.4 - 16.8 g/dL Hematocrit 44.9 39.6 - 48.8 % Mean Cell Volume 91.3 79.0 - 94.5 fL Mean Cell Hgb 31.7 26.1 - 33.3 pg Mean Cell Hgb Conc 34.7 31.9 - 36.5 g/dL RBC Distribution 11.8 10.9 - 14.3 % Platelet Count 260 146 - 337 K/uL Mean Platelet Volume 10.3 8.7 - 12.3 fL DIFF STATUS Electronic Differential Segs + Bands Auto 71.7 % Immature Grans % 0.2 % Lymphocyte % Auto 22.7 % Monocyte % Auto 4.4 % Eosinophil % Auto 0.5 % Basophil % Auto 0.5 % Nucleated RBC 0.0 <=0.2 /100 WBC Segs + Bands,Absolute Auto 6.14 1.57 - 6.19 K/uL Immature Grans Absolute <0.04 <=0.07 K/uL Abs Lymph Auto 1.94 0.83 - 3.57 K/uL Abs Frontier Auto 0.38 0.24 - 0.93 K/uL Abs Eos Auto 0.04 0.00 - 0.48 K/uL Abs Baso Auto 0.04 0.00 - 0.09 K/uL INFLUENZA A/B RAPID MOLECULAR Result Value Ref Range Influenza A, Molecular Not Detected Not Detected Influenza B, Molecular Not Detected Not Detected GLUCOSE POC Result Value Ref Range Glucose (POC Device) 184 (H) 70 - 99 mg/dL POC Sample Type CAPBL XR CHEST 1 VIEW PORTABLE Final Result IMPRESSION: No acute cardiopulmonary findings. Medical Decision Making In summary, Kwabena Aparicio is a 23 y.o. male with a family history of NH in the 40s complaining of dizziness and vomiting after intake of 6 edibles last night which is in the absence of fever, shortness of breath, nausea vomiting while in ED. vitals normal. Physical examination notable for pupils dilated 9 mm bilaterally that are equal round and reactive to light, otherwise benign examination. Differential diagnosis includes but is not limited to the following, at least one of which is an imminent threat to life or bodily function: Cannabis intoxication, dehydration, vertigo, pneumonia, arrhythmia, trauma. Initial management: CBC Chem 7 magnesium phosphate calcium. EKG and troponin. COVID influenza test. Chest x-ray. Impression: Based on above data, this most likely represents cannabis intoxication. Disposition: Discharge home, follow up PCP Note was written using voice recognition software. Please excuse any misspellings or word substitutions. Jarrod Bagley MD Emergency Medicine, PGY-1 Jarrod Bagley MD Resident 02/09/24 1607 Patient endorses recent ingestion of edibles. States that he has not had them in four months, but that last night he had them. Endorses daily use of marijuana. Pt presents to the ED with dizzy and vomiting I feel weird. Pt walking with steady gait, NAD, A&Ox4, GCS15, Respirations even and unlabored. documented in this encounter [facility] 02-09-2024 Emergency department Note Patient tolerated food without difficulty [facility] 02-09-2024 Emergency department Note ED patient listed as having no insurance. Patients AVS was updated with [facility]'s physicians assistance program, along with phone numbers to call and apply for Medicaid. Charitable resources for medication and free clinics also provided in patients AVS. If patient is going to be admitted then a financial counselor will meet with patient to assist with applicaton. Sidra MARQUEZ, WIRE FENCE ERECTORdirector radiation oncology [phone] [facility] 02-09-2024 Physician Emergency department Note ED Staffing Note Chief complaint: Chief Complaint Patient presents with Chest Pain Kwabena Aparicio is a 23 y.o. year old male who presents with presents with emesis. Pt states that he took 6 edibles last night. Following ingestion pt reports lightheaded sensation associated with emesis (NBNB). Denies any additional ingestion. No SI/HI. No fever, sob, cough, chest pain. Pt states that he has had edibles in the past but has never ingested this much at one time. Pt states that he continued to ingest the edibles because he did not think that they were working. Pt states he then had the sensation that all of the edibles hit me at the same time. Past Medical History: Diagnosis Date ADHD No past surgical history on file. Social History Socioeconomic History Marital status: Single Spouse name: Not on file Number of children: Not on file Years of education: Not on file Highest education level: Not on file Occupational History Not on file Tobacco Use Smoking status: Every Day Types: Cigarettes Smokeless tobacco: Never Substance and Sexual Activity Alcohol use: Not Currently Drug use: Yes Types: Marijuana, Psilocybin Sexual activity: Yes Partners: Female Other Topics Concern Not on file Social History Narrative Not on file Social Determinants of Health Financial Resource Strain: Medium Risk (05/18/2022) Received from [facility] Overall Financial Resource Strain (CARDIA) Difficulty of Paying Living Expenses: Somewhat hard Food Insecurity: Food Insecurity Present (05/18/2022) Received from [facility] Hunger Vital Sign Worried About Running Out of Food in the Last Year: Sometimes true Ran Out of Food in the Last Year: Sometimes true Transportation Needs: No Transportation Needs (05/18/2022) Received from [facility] PRAPARE - Transportation Lack of Transportation (Medical): No Lack of Transportation (Non-Medical): No Physical Activity: Unknown (05/18/2022) Received from [facility] Exercise Vital Sign Days of Exercise per Week: 6 days Minutes of Exercise per Session: Patient declined Stress: Stress Concern Present (05/18/2022) Received from [facility] [place] of Occupational Health - Occupational Stress Questionnaire Feeling of Stress : Very much Social Connections: Unknown (05/18/2022) Received from [facility] Social Connection and Isolation Panel [NHANES] Frequency of Communication with Friends and Family: More than three times a week Frequency of Social Gatherings with Friends and Family: Twice a week Attends Pentecostalism Services: Never Active Member of Clubs or Organizations: No Attends Club or Organization Meetings: Never Marital Status: Patient declined Intimate Partner Violence: Not on file Housing Stability: Low Risk (05/18/2022) Received from [facility] Housing Stability Vital Sign Unable to Pay for Housing in the Last Year: No Number of Places Lived in the Last Year: 1 Unstable Housing in the Last Year: No History reviewed. No pertinent family history. Review of systems as per HPI DDx (includes acute life and/or limb threats):: Ingestion, dehydration, electrolyte derangement, Impression: Ingestion (cannabinoid) Plan: Pt presents following acute ingestion of edibles. Pt denies any additional ingestion. Denies self harm. Initially pt had symptoms of nausea/vomiting but symptoms have now abated. VSS. Pt is low risk for ACS. Labs are reassuring. Radiograph with no acute findings. EKG with no acute ischemic changes. Will po challenge and reassess. ED Course: EKG: normal sinus rhythm, rate 100. No acute ST segment changes. Right atrial enlargement Prior medical records were reviewed. All pertinent labs and imaging results were reviewed and interpreted by me. The patient was updated regarding findings, and was re-assessed during ED stay. This patient's history and physical exam were performed by the resident. On 02/09/2024 I saw and examined the patient. I discussed the history and examination with the resident and agree with the plan of care. In addition, I have fully participated in the care of this patient. I have reviewed all pertinent clinical information, including history, physical exam and medical decision making with the resident. Medical Decision Making Amount and/or Complexity of Data Reviewed External Data Reviewed: notes. Labs: ordered. Decision-making details documented in ED Course. Radiology: ordered and independent interpretation performed. Decision-making details documented in ED Course. ECG/medicine tests: ordered and independent interpretation performed. Decision-making details documented in ED Course. Michi Tolbert II, MD 02/09/24 9516 [facility] Work Phone: 02-09-2024 Hospital Discharg e instructions Jarrod Bagley MD - 02/09/2024 7:16 AM EDT You were seen here at [facility] and were concerned for dizziness and vomiting. Emergent causes of this are unlikely given your overall clinical status and diagnostics. Please follow up with a PCP. If you feel that your symptoms worsen as discussed and are concerned for your health, please return to the emergency department. [facility] Physicians Medical Bias Cutter Helper Please contact [facility] Physicians Assistance. Our trained financial counselors will work to help you get financial support. Just call [phone] from 9 a.m. and 4 p.m. weekdays. Once they tell you that you have been approved for assistance, please call the [facility]'s physician referral service at or toll-free at to request a Primary Care Provider. Be sure to tell them your [facility] Physician Bias Cutter Helper application has been approved. If you were given the HCAP application and need to submit information for that, you will still need to submit this application and supporting documents that you were instructed to submit. [facility] Physicians offers financial assistance for medically necessary services when you see a doctor within our network. [facility] offers financial assistance for medically necessary non-physician services at [facility] facilities (ex. Radiology testing, lab work, etc.). To apply for the [facility] and the [facility] s assistance programs, please contact Patient Billing Customer Service at [phone] and complete a screening over the phone. You may be required to complete a paper application for the [facility] financial assistance program. This program covers most outpatient services. However, please make sure to verify with your physician s office if the service you will be receiving is medically necessary and covered. Below is a list of services that are not covered: Visit deposit fees required prior to services rendered Payments made prior to approval in this program Elective/Cosmetic surgery Non-medically necessary or appropriate services Specialized high/fixed cost services and supplies Services for which payments are due from any third libertarian, municipalities, long-term centers, or law enforcement agencies and negotiated settlements (to include legal cases). If you would like to apply in person for our assistance programs or for Medicaid you can visit us at [address] [place] [address] during business hours. For assistance via telephone with your hospital balances, please contact Patient Billing Customer Service at . If you do not have insurance or are under-insured, here are some resources for you: Medicaid provides health coverage to millions of Americans. Visit the Medicaid website (https://benefits.[place].gov/) to see if you are eligible or to apply for benefits. OR call [place] Medicaid Consumer Hotline at [phone]. If you lose job-based insurance, COBRA,( https://www.healthcare.gov/unemp thomas/cobra-coverage/) provides continuation coverage. On the [employer] Care Act Marketplace,(https://www.VayaFeliz.gov/) you can browse, compare and purchase health insurance. To be screened for additional financial assistance programs offered at [facility], call Billing Customer Services at [phone]. Other Resources: Jones lists and estimates for the cost of services are available on our website (https://Meridian.[facility]/p ymoeci-hww-szrxzmh-guide/patient -pricing-lists) RideApart allows you to securely use your computer or mobile device to manage and receive information about your health, access portions of your medical records, view bills and set up payment plans. To sign up, visit Privacy Analytics.[facility]. *Physicians CareConnections: [phone] or [email or web address]://[email or web address].[email or web address].[email or web address]/home [address] [facility] [address] -STEPONE for a healthy call [phone] -Offers primary care (walks-in) or specialty care (by appointment only) -Dental, Vision and Colorectal screenings, prescription assistance, linkage to nutrition security, health insurance enrollment help, family coaching Other helpful Prescriptions websites include: www.staterxplans.us/[place].html Mat.org GoodRx.com Needymeds.org Familywize.org Rxhope.GiveForward.CLUDOC - A Healthcare Network (also available as a phone veronica) HEALTH INSURANCE RESOURCES Did you know that you do not have to be employed to get coverage for you and your family here are some [place] options for you to research and apply for if you have not already *The [place] Department of Medicaid https://medicaid.[place].gov/wps/po rtal/gov/medicaid/ *The [place] Department of Medicare https://insurance.[place].gov/wps/p ortal/gov/paige/consumers/medicare *TapClicks Health Plan https://www.Yieldbot.co m/ *Caresource https://www.Infinity Telemedicine Group.CLUDOC - A Healthcare Network/ *Humana https://www.humana.com/ *Moviepilot https://www.Lyks.CLUDOC - A Healthcare Network / Additional Websites to shop for healthcare coverage at * https://www.Shareablee.gov/ * https://www.YouScan/ * https://www.mvdfhvncmp-chpqhm-ql surance-plans.org/ * https://www.healthinsurance.org/ yfytct-gdjdlohvb-xcxbogthtuqu/oh io/ * https://insurance.[place].gov/wps/p ortal/gov/paige/consumers/health/2 711-rtemutm-woskltir-plans documented in this encounter [facility] 02-09-2024 Physician Emergency department Note Images from the original note were not included. dEPARTMENT of Emergency Medicine HPI Kwabena Aparicio is a 23 y.o. male with a family member who had an NH in their early 40s presenting with dizziness and vomiting. Patient states he had 6 edibles last night and thereafter had dizziness described as presyncope and 3 episodes of nonbloody nonbilious emesis. Initially the symptoms were worsened by standing and alleviated by lying down. He also states bilateral tinnitus and right eye blurriness. He states he has taken edibles before, but this is the 1st time within the past 3 months. Patient denies fever, shortness of breath, cough, nausea vomiting now, chest pain, other intoxication. PAST MEDICAL HISTORY Past Medical History: Diagnosis Date ADHD SURGICAL HISTORY No past surgical history on file. CURRENT MEDICATIONS Current Outpatient Medications Medication Sig amphetamine-dextroamphetamine 10 MG tablet Take 2 tablets by mouth daily. ALLERGIES No Known Allergies FAMILY HISTORY History reviewed. No pertinent family history. SOCIAL HISTORY Social History Socioeconomic History Marital status: Single Tobacco Use Smoking status: Every Day Types: Cigarettes Smokeless tobacco: Never Substance and Sexual Activity Alcohol use: Not Currently Drug use: Yes Types: Marijuana, Psilocybin Sexual activity: Yes Partners: Female Social Determinants of Health Financial Resource Strain: Medium Risk (05/18/2022) Received from [facility] Overall Financial Resource Strain (CARDIA) Difficulty of Paying Living Expenses: Somewhat hard Food Insecurity: Food Insecurity Present (05/18/2022) Received from [facility] Hunger Vital Sign Worried About Running Out of Food in the Last Year: Sometimes true Ran Out of Food in the Last Year: Sometimes true Transportation Needs: No Transportation Needs (05/18/2022) Received from [facility] PRAPARE - Transportation Lack of Transportation (Medical): No Lack of Transportation (Non-Medical): No Physical Activity: Unknown (05/18/2022) Received from [facility] Exercise Vital Sign Days of Exercise per Week: 6 days Minutes of Exercise per Session: Patient declined Stress: Stress Concern Present (05/18/2022) Received from [facility] [place] of Occupational Health - Occupational Stress Questionnaire Feeling of Stress : Very much Social Connections: Unknown (05/18/2022) Received from [facility] Social Connection and Isolation Panel [NHANES] Frequency of Communication with Friends and Family: More than three times a week Frequency of Social Gatherings with Friends and Family: Twice a week Attends Pentecostalism Services: Never Active Member of Clubs or Organizations: No Attends Club or Organization Meetings: Never Marital Status: Patient declined Housing Stability: Low Risk (05/18/2022) Received from [facility] Housing Stability Vital Sign Unable to Pay for Housing in the Last Year: No Number of Places Lived in the Last Year: 1 Unstable Housing in the Last Year: No PHYSICAL EXAM VITAL SIGNS: BP 125/78 Pulse 83 Temp 97.3 F (36.3 C) (Oral) Resp 18 Ht 1.829 m (6') SpO2 98% Smoking Status Every Day Physical Exam Vitals and nursing note reviewed. Constitutional: General: He is not in acute distress. Appearance: Normal appearance. He is not ill-appearing or diaphoretic. HENT: Head: Normocephalic and atraumatic. Eyes: General: No scleral icterus. Extraocular Movements: Extraocular movements intact. Comments: Pupils are dilated 9 mm bilaterally, equal round and reactive to light Cardiovascular: Rate and Rhythm: Normal rate and regular rhythm. Heart sounds: Normal heart sounds. Pulmonary: Effort: Pulmonary effort is normal. Breath sounds: Normal breath sounds. Chest: Chest wall: No tenderness. Abdominal: General: Abdomen is flat. Palpations: Abdomen is soft. Tenderness: There is no abdominal tenderness. Musculoskeletal: Cervical back: Normal range of motion. Right lower leg: No edema. Left lower leg: No edema. Skin: General: Skin is warm and dry. Neurological: Mental Status: He is alert and oriented to person, place, and time. Comments: CN III, IV, : P dilated, ERRL, EOMI. CN V: facial sensation intact to light touch bilaterally in V1, V2, V3. CN VII: face, smile, eyebrow raise/closure symmetric. CN VIII: hearing equal on both sides. CN IX & X: soft palate elevates symmetrically at midline, no dysarthria. No uvula deviation. CN XI: shoulder shrug full strength bilaterally. CN XII: tongue protrudes midline. Psychiatric: Behavior: Behavior normal. Thought Content: Thought content does not include homicidal or suicidal ideation. ED COURSE & MEDICAL DECISION MAKING Results for orders placed or performed during the hospital encounter of 02/09/24 SARS-COV-2 RAPID Specimen: Fluid/Swab Result Value Ref Range SARS-COV-2 NOT DETECTED NOT DETECTED CHEM 7 (LYTES,BUN,CREA,GLUC) Result Value Ref Range Sodium 136 135 - 145 mmol/L Potassium 3.5 3.5 - 5.0 mmol/L Chloride 101 98 - 108 mmol/L CO2 27 21 - 31 mmol/L Glucose 188 (H) 70 - 99 mg/dL BUN 20 7 - 25 mg/dL Creatinine 1.22 0.70 - 1.30 mg/dL Bun/Crea Ratio 16 Osmolality (Calculated) 293 278 - 305 mOsm/kg Anion Gap 12 7 - 17 mmol/L eGFR, CKD-EPI, Male 86 >=60 mL/min/1.73m2 PHOSPHATE, INORGANIC Result Value Ref Range Phosphorous 4.0 2.2 - 4.6 mg/dL MAGNESIUM Result Value Ref Range Magnesium 2.2 1.6 - 2.6 mg/dL CALCIUM Result Value Ref Range Calcium 9.5 8.6 - 10.5 mg/dL HIGH SENSITIVITY TROPONIN I - SINGLE ORDER Result Value Ref Range hs-Troponin I <3 <53 ng/L CBC AND ELECTRONIC DIFF Result Value Ref Range WBC Count 8.56 3.73 - 10.10 K/uL RBC Count 4.92 4.38 - 5.83 M/uL Hemoglobin 15.6 13.4 - 16.8 g/dL Hematocrit 44.9 39.6 - 48.8 % Mean Cell Volume 91.3 79.0 - 94.5 fL Mean Cell Hgb 31.7 26.1 - 33.3 pg Mean Cell Hgb Conc 34.7 31.9 - 36.5 g/dL RBC Distribution 11.8 10.9 - 14.3 % Platelet Count 260 146 - 337 K/uL Mean Platelet Volume 10.3 8.7 - 12.3 fL DIFF STATUS Electronic Differential Segs + Bands Auto 71.7 % Immature Grans % 0.2 % Lymphocyte % Auto 22.7 % Monocyte % Auto 4.4 % Eosinophil % Auto 0.5 % Basophil % Auto 0.5 % Nucleated RBC 0.0 <=0.2 /100 WBC Segs + Bands,Absolute Auto 6.14 1.57 - 6.19 K/uL Immature Grans Absolute <0.04 <=0.07 K/uL Abs Lymph Auto 1.94 0.83 - 3.57 K/uL Abs Frontier Auto 0.38 0.24 - 0.93 K/uL Abs Eos Auto 0.04 0.00 - 0.48 K/uL Abs Baso Auto 0.04 0.00 - 0.09 K/uL INFLUENZA A/B RAPID MOLECULAR Result Value Ref Range Influenza A, Molecular Not Detected Not Detected Influenza B, Molecular Not Detected Not Detected GLUCOSE POC Result Value Ref Range Glucose (POC Device) 184 (H) 70 - 99 mg/dL POC Sample Type CAPBL XR CHEST 1 VIEW PORTABLE Final Result IMPRESSION: No acute cardiopulmonary findings. Medical Decision Making In summary, Kwabena Aparicio is a 23 y.o. male with a family history of NH in the 40s complaining of dizziness and vomiting after intake of 6 edibles last night which is in the absence of fever, shortness of breath, nausea vomiting while in ED. vitals normal. Physical examination notable for pupils dilated 9 mm bilaterally that are equal round and reactive to light, otherwise benign examination. Differential diagnosis includes but is not limited to the following, at least one of which is an imminent threat to life or bodily function: Cannabis intoxication, dehydration, vertigo, pneumonia, arrhythmia, trauma. Initial management: CBC Chem 7 magnesium phosphate calcium. EKG and troponin. COVID influenza test. Chest x-ray. Impression: Based on above data, this most likely represents cannabis intoxication. Disposition: Discharge home, follow up PCP Note was written using voice recognition software. Please excuse any misspellings or word substitutions. Jarrod Bagley MD Emergency Medicine, PGY-1 aJrrod Bagley MD Resident 02/09/24 1607 [facility] 02-09-2024 Emergency department Note Patient endorses recent ingestion of edibles. States that he has not had them in four months, but that last night he had them. Endorses daily use of marijuana. [facility] 02-09-2024 Note Acute Coronary Syndr ome (ACS): Initial Evaluation and Management: [email or web address]/Acute [email or web address] [facility] 02-09-2024 Emergency department Note Pt presents to the ED with dizzy and vomiting I feel weird. Pt walking with steady gait, NAD, A&Ox4, GCS15, Respirations even and unlabored. [facility] 02-08-2024 History of Presen t illness Narrative The patient did not show up for this appointment. Items addressed in this encounter: Virtual Visit Pre Check In Attempted to reach patient no answer DEVANTE Scruggs MA February 08, 2024 12:18 PM 12:18 PM Items addressed in this encounter: Virtual Visit Pre Check In 2nd attempt no answer Leti Scruggs MA February 08, 2024 1:36 PM 1:36 PM documented in this encounter [facility] 01-14-2024 Miscellaneous Notes The following approved medication requests have been transmitted electronically. Requested Prescriptions Signed Prescriptions Disp Refills amphetamine-dextroamphetamine XR (ADDERALL XR) 5 mg capsule 30 capsule 0 Sig: Take 1 capsule by mouth once daily for 30 days. to add to 20 mg for a dose of 25mg daily Authorizing Provider: ARTURO PICKENS amphetamine-dextroamphetamine XR (ADDERALL XR) 20 mg capsule 30 capsule 0 Sig: Take 1 capsule by mouth once daily for 30 days. Authorizing Provider: ARTURO PICKENS MD Can you also file consult to transition to adult primary care. Patient states he will be returning to [place] in the summer. Veronika Anderson RN Last [facility]: greater than one year ago Last ADHD / Med Check visit: 12/11/23 Verify RX Benefits Completed Last medication refill date: 12/31/23 Requesting 30 day supply Retail pharmacy updated: Completed Patient aware RX will be sent to pharmacy. No need to notify patient. Health Maintenance due: Meningococcal B Vaccine: Consider Based On Risk(1 of 2 - Patient Seeks Protection) Never done Hepatitis C Screening Never done HIV Screening Never done DTaP,Tdap,Td Vaccine(7 - Td or Tdap) due on 06/26/2022 Influenza Vaccine(1) due on 07/31/2023 Covid-19 Vaccine(2 - 2022- season) due on 07/31/2023 Depression Assessment Never done Veronika Anderson RN documented in this encounter [facility] 09-14-2023 Miscellaneous Notes The following approved medication requests have been transmitted electronically. Requested Prescriptions Pending Prescriptions Disp Refills amphetamine-dextroamphetamine XR (ADDERALL XR) 5 mg capsule 30 capsule 0 Sig: Take 1 capsule by mouth once daily for 30 days. to add to 20 mg for a dose of 25mg daily amphetamine-dextroamphetamine XR (ADDERALL XR) 20 mg capsule 30 capsule 0 Sig: Take 1 capsule by mouth once daily for 30 days. Arturo Pickens MD Last [facility]: greater than one year ago Last ADHD / Med Check visit: 01/16/2023- scheduled for 09/24/2023 Verify RX Benefits Completed Last medication refill date: 08/07/2023 Requesting 30 day supply Retail pharmacy updated: Completed Patient aware RX will be sent to pharmacy. No need to notify patient. Health Maintenance due: Meningococcal B Vaccine: Consider Based On Risk(1 of 2 - Patient Seeks Protection) Never done Hepatitis C Screening Never done HIV Screening Never done DTaP,Tdap,Td Vaccine(7 - Td or Tdap) due on 06/26/2022 Depression Assessment Never done Influenza Vaccine(1) due on 07/31/2023 Covid-19 Vaccine(2 - 2022-24 season) due on 07/31/2023 Reza Wang RN documented in this encounter [facility] 08-07-2023 Miscellaneous Notes The following approved medication requests have been transmitted electronically. Requested Prescriptions Pending Prescriptions Disp Refills amphetamine-dextroamphetamine XR (ADDERALL XR) 20 mg capsule 30 capsule 0 Sig: Take 1 capsule by mouth once daily for 30 days. Arturo Pickens MD Last [facility]: greater than one year ago Last ADHD / Med Check visit: 01/16/2023 Verify RX Benefits Completed Last medication refill date: 07/09/2023 Requesting 30 day supply Retail pharmacy updated: Completed Patient aware RX will be sent to pharmacy. No need to notify patient. Immunizations due: MENINGOCOCCAL B: Consider based on risk(1 of 2 - Patient Seeks Protection) Never done HEPATITIS C SCREENING Never done HIV SCREENING Never done COVID-19 VACCINE(2 - Moderna series) due on 06/10/2021 DTAP,TDAP,TD(7 - Td or Tdap) due on 06/26/2022 DEPRESSION ASSESSMENT Never done INFLUENZA(1) due on 07/31/2023 Kaur Rand LPN documented in this encounter [facility] 07-09-2023 Miscellaneous Notes The following approved medication requests have been transmitted electronically. Requested Prescriptions Pending Prescriptions Disp Refills amphetamine-dextroamphetamine XR (ADDERALL XR) 5 mg biphasic capsule 30 capsule 0 Sig: Take 1 capsule by mouth once daily for 30 days. to add to 20 mg for a dose of 25mg daily Arturo Pickens MD Last WCC: greater than one year ago Last ADHD / Med Check visit: 01/16/23. Reply had been sent in My Chart indicating that patient is due for med check. Verify RX Benefits Completed Last medication refill date: 05/08/2023 Requesting 30 day supply Retail pharmacy updated: Completed Patient aware RX will be sent to pharmacy. No need to notify patient. Immunizations due: MENINGOCOCCAL B: Consider based on risk(1 of 2 - Patient Seeks Protection) Never done HEPATITIS C SCREENING Never done HIV SCREENING Never done COVID-19 VACCINE(2 - Moderna series) due on 06/10/2021 DTAP,TDAP,TD(7 - Td or Tdap) due on 06/26/2022 DEPRESSION ASSESSMENT Never done Kaur Rand LPN documented in this encounter [facility] 07-07-2023 Miscellaneous Notes The following approved medication requests have been transmitted electronically. Requested Prescriptions Pending Prescriptions Disp Refills amphetamine-dextroamphetamine XR (ADDERALL XR) 20 mg biphasic capsule 30 capsule 0 Sig: Take 1 capsule by mouth once daily for 30 days. Arturo Pickens MD Last WCC: greater than one year ago Last ADHD / Med Check visit: 01/16/23. Reply sent in My Chart indicating that patient is due for med check. Verify RX Benefits Completed Last medication refill date: 06/08/23 Requesting 30 day supply Retail pharmacy updated: Completed Patient aware RX will be sent to pharmacy. No need to notify patient. Immunizations due: MENINGOCOCCAL B: Consider based on risk(1 of 2 - Patient Seeks Protection) Never done HEPATITIS C SCREENING Never done HIV SCREENING Never done COVID-19 VACCINE(2 - Moderna series) due on 06/10/2021 DTAP,TDAP,TD(7 - Td or Tdap) due on 06/26/2022 DEPRESSION ASSESSMENT Never done Kelli Schaefer RN documented in this encounter [facility] 06-08-2023 Miscellaneous Notes The following approved medication requests have been transmitted electronically. Requested Prescriptions Pending Prescriptions Disp Refills amphetamine-dextroamphetamine XR (ADDERALL XR) 20 mg biphasic capsule 30 capsule 0 Sig: Take 1 capsule by mouth once daily for 30 days. Arturo Pickens MD Last WCC: greater than one year ago Last ADHD / Med Check visit: 01-16-23 Verify RX Benefits Completed Last medication refill date: 05-08-23 Requesting 30 day supply Retail pharmacy updated: Completed Patient aware RX will be sent to pharmacy. No need to notify patient. Immunizations due: MENINGOCOCCAL B: Consider based on risk(1 of 2 - Patient Seeks Protection) Never done HEPATITIS C SCREENING Never done HIV SCREENING Never done COVID-19 VACCINE(2 - Moderna series) due on 06/10/2021 DTAP,TDAP,TD(7 - Td or Tdap) due on 06/26/2022 DEPRESSION ASSESSMENT Never done Phill Godwin RN documented in this encounter [facility] 05-31-2023 Instructions Emely Gandara APRN.CNP - 05/31/2023 1:31 PM EDT Return for tdap tomorrow Wound Care - Keep the area clean and dry -Clean with soap and water . Can use erythromycin eye ointment to area -Tylenol or Ibuprofen for discomfort -Observe area for signs of infection: redness, warmth, foul odor, drainage or increase in discomfort. Call you primary care physician if this occurs. Follow up with eye doctor Augmentin as ordered. documented in this encounter [facility] 05-31-2023 History of Presen t illness Narrative Images from the original note were not included. Subjective The history is provided by the patient. No language assistant was used. HPI Kwabena Aparicio is a 22 year old male who presents today for CC of being bit by a dog. This occurred 2 days ago. He denies any loss of vision, he is having pain in his eye. He has not used any medications or treatment. Last tdap was 2011 There were no vitals taken for this visit. Social History Tobacco Use Smoking status: Never Smokeless tobacco: Never Vaping Use Vaping Use: Never used PAST MEDICAL HISTORY Diagnosis Date Kawasaki disease (HCC) I have confirmed and edited as necessary, the [facility] Review of Systems Constitutional: Negative for chills and fever. Eyes: Positive for redness. Musculoskeletal: Negative for joint pain and myalgias. Skin: Negative for itching and rash. Dog bites above eye, mild swelling All other systems reviewed and are negative. Objective Physical Exam Vitals and nursing note reviewed. Eyes: General: Lids are normal. Lids are everted, no foreign bodies appreciated. Comments: Eye exam Left eye 20/20, a Right eye 20/25. Red line where there is redness Globes are firm but not hard. Upper and lower lids were everted. There is no evidence of injury or foreign material. No hyphema is present. There is no evidence of periorbital cellulitis. There are no temporal, pulsatile masses. Flourescein stain was instilled into the right eye and a Wood's Lamp exam performed. There was uptake at the 1 oclock position and 9 oclock. Negative Damaris Pulmonary: Effort: Pulmonary effort is normal. Skin: General: Skin is warm and dry. Neurological: Mental Status: He is alert and oriented to person, place, and time. Psychiatric: Mood and Affect: Affect normal. ASSESSMENT/PLAN: 1. Dog bite, initial encounter - ICD9: 879.8, E906.0, ICD10: W54.0XXA (primary diagnos) Left before receiving tdap, will return tomorrow. Augmentin as ordered Keep wounds clean Monitor for signs of infection 2. Eye problem - ICD9: V41.1, ICD10: H57.9 Appears to be corneal abrasion Erythromycin ointment as ordered Patient will call eye doctor tomorrow and get follow up exam. Diagnosis and treatment plan were discussed and questions were answered to the patient's satisfaction. Pt acknowledged understanding of concepts and follow up plan. Specific signs and symptoms that would indicate the need for higher level of care were discussed in detail warranting prompt ER evaluation. Emely Gandara APRN.MARLON documented in this encounter [facility] 03-26-2023 Miscellaneous Notes The following approved medication requests have been transmitted electronically. Requested Prescriptions Signed Prescriptions Disp Refills amphetamine-dextroamphetamine XR (ADDERALL XR) 20 mg 24 hr capsule 30 capsule 0 Sig: Take 1 capsule by mouth once daily for 30 days. amphetamine-dextroamphetamine XR (ADDERALL XR) 5 mg 24 hr capsule 30 capsule 0 Sig: Take 1 capsule by mouth once daily for 30 days. to add to 20 mg for a dose of 25mg daily Arturo Pickens MD family calling in, DM in [place] has patient's regular scripts, please send there. Phill Godwin RN ok for switch to IR? documented in this encounter [facility] 03-09-2023 Miscellaneous Notes The following approved medication requests have been transmitted electronically. Requested Prescriptions Pending Prescriptions Disp Refills amphetamine-dextroamphetamine XR (ADDERALL XR) 20 mg 24 hr capsule 30 capsule 0 Sig: Take 1 capsule by mouth once daily for 30 days. Do not start before May 08, 2023. amphetamine-dextroamphetamine XR (ADDERALL XR) 20 mg 24 hr capsule 30 capsule 0 Sig: Take 1 capsule by mouth once daily for 30 days. Do not start before April 08, 2023. amphetamine-dextroamphetamine XR (ADDERALL XR) 20 mg 24 hr capsule 30 capsule 0 Sig: Take 1 capsule by mouth once daily for 30 days. amphetamine-dextroamphetamine XR (ADDERALL XR) 5 mg 24 hr capsule 30 capsule 0 Sig: Take 1 capsule by mouth once daily for 30 days. to add to 20 mg for a dose of 25mg daily Do not start before May 08, 2023. amphetamine-dextroamphetamine XR (ADDERALL XR) 5 mg 24 hr capsule 30 capsule 0 Sig: Take 1 capsule by mouth once daily for 30 days. to add to 20 mg for a dose of 25mg daily Do not start before April 08, 2023. amphetamine-dextroamphetamine XR (ADDERALL XR) 5 mg 24 hr capsule 30 capsule 0 Sig: Take 1 capsule by mouth once daily for 30 days. to add to 20 mg for a dose of 25mg daily Arturo Pickens MD Would you like a 3-month prescription? Please also remind him that he is due for a Tdap vaccine Last WCC: greater than one year ago Last ADHD / Med Check visit: 01/16/2023 Verify RX Benefits Completed Last medication refill date: 02/04/2023 Requesting 30 day supply Retail pharmacy updated: Completed Patient aware RX will be sent to pharmacy. No need to notify patient. Immunizations due: MENINGOCOCCAL B: Consider based on risk(1 of 2 - Risk Bexsero 2-dose series) Never done HEPATITIS C SCREENING Never done HIV SCREENING Never done COVID-19 VACCINE(2 - Moderna series) due on 05/13/2021 DTAP,TDAP,TD(7 - Td or Tdap) due on 06/26/2022 DEPRESSION ASSESSMENT Never done Reza Wang RN documented in this encounter [facility] 01-16-2023 History of Presen t illness Narrative FOLLOW UP VISIT PEDIATRIC ADHD SERVICE DATE: 01/16/2023 Kwabena Aparicio is a 22 year old male who presents with self for follow up visit for ADHD. History was obtained from: patient Currently taking Adderall XR 25 mg for years. Last adjustment 06/20 (20 mg then takes 5 mg on days .started 2019 Takes medication 20 mg 5-6 days/ week then 5 mg 1-2 days. The medication is helping dramatically. Improvement noted in the following symptoms: problems focusing and forgetfulness. Symptom severity now considered: mild. Context: home, school, and work. Pt believe room for improvement? No Currently enrolled in behavioral counseling or therapy: No School: Presently in College. (martín) 2 days in person, 2 on line, work days [employer]. PAST MEDICAL HISTORY Diagnosis Date Kawasaki disease (HCC) ROS/Screen for medication adverse effects: Abdominal pain: no Appetite problems: no Drowsiness: no Sleep problems: no Headaches: no Depression: no Suicidal ideation: no Chest pain: no Palpitations: yes- if not eating enough Syncope: no Last 2 Encounter Wt Readings: Date: Wt: 01/16/2023 62.1 kg (137 lb) 01/28/2021 61.6 kg (135 lb 12 oz) (19 %, Z= -0.86)* PHYSICAL EXAM: BP 124/76 Pulse 88 Temp 36.4 C (97.6 F) (Temporal) Resp 20 Wt 62.1 kg (137 lb) BMI 19.12 kg/m Blood pressure percentiles are not available for patients who are 18 years or older. General: Well developed, No acute distress Neck: supple and no adenopathy Lungs: clear to auscultation bilaterally, good air exchange, no retractions Heart: Normal rate, regular rhythm, no murmur Abdomen: Soft, nontender, nondistended, no palpable organomegaly or masses, normal bowel sounds Skin: Normal color, texture and turgor. No rashes. ASSESSMENT/PLAN: Encounter Diagnosis ICD-10-CM 1. Attention deficit hyperactivity disorder (ADHD), predominantly inattentive type F90.0 22 year old male with ADHD with optimization of symptoms and without significant medication side effects. - Continue current medication. - Follow up in 3-6 months for routine ADHD follow up Due for Tdap, will schedule nurse visit. SIGNATURE: Arturo Pickens MD PATIENT NAME: Kwabena Aparicio DATE: January 16, 2023 TIME: 1:10 PM documented in this encounter [facility] 01-14-2023 Miscellaneous Notes The following approved medication requests have been transmitted electronically. Requested Prescriptions Signed Prescriptions Disp Refills amphetamine-dextroamphetamine XR (ADDERALL XR) 20 mg 24 hr capsule 30 capsule 0 Sig: Take 1 capsule by mouth once daily for 30 days. Authorizing Provider: ARTURO PICKENS amphetamine-dextroamphetamine XR (ADDERALL XR) 5 mg 24 hr capsule 30 capsule 0 Sig: Take 1 capsule by mouth once daily for 30 days. to add to 20 mg for a dose of 25mg daily Authorizing Provider: ARTURO PICKENS MD Yes does need and medication check set up for Thursday. Reza Wang RN message left for patient to call office Phill Godwin RN Message left for patient to call office [phone] Phill Godwin RN Images from the original note were not included. copied from [employer] note Will Valencia MD 1:37 PM Note The [facility] RideApart user guide specifically states MyChart encounters cannot be used for prescribing or adjusting controlled substances. Therefore this will need to be handled in a telephone encounter. Also, since this is for a controlled substance, please obtain verbal confirmation that the patient is actually making this request (and document this confirmation). This note was partially generated using [employer] voice recognition system, and there may be some incorrect words, spellings, and punctuation that were not noted in checking the note before saving. Will Valencia MD CN 1:13 PM You routed this conversation to Will Valencia MD Me to Kwabena Aparicio CN 1:13 PM Mi Kwabena, we have sent your refill request to the physician for review. Please note that you are overdue for a medication check, your last one was 04/2022, they are to be every 6 months. We are happy to assist you with scheduling, are there certain days of the week or times of the day that work best for you? Thank you. This [employer]Apart message has not been read. Al CN 1:12 PM Note Last WC: greater than one year ago Last ADHD / Med Check visit: 05-19-22 , message to patient that med check needs scheduled. Verify RX Benefits Completed Last medication refill date: 11-25-22 Requesting 30 day supply Retail pharmacy updated: Completed Patient aware RX will be sent to pharmacy. No need to notify patient. Immunizations due: MENINGOCOCCAL B: Consider based on risk(1 of 2 - Risk Bexsero 2-dose series) Never done HEPATITIS C SCREENING Never done HIV SCREENING Never done COVID-19 VACCINE(2 - Moderna series) due on 05/13/2021 DTAP,TDAP,TD(7 - Td or Tdap) due on 06/26/2022 INFLUENZA(1) due on 07/31/2022 DEPRESSION ASSESSMENT Never done Kwabena Velez RN to [facility] My Chart Rx Pool (supporting Arturo Pickens MD) BB 12:55 PM Would you please send a request to [facility] for the Adderall 5 mg? Thank you This encounter is not signed. The conversation may still be ongoing. Additional Documentation Flowsheets: [facility] PDMP [employer] documented in this encounter [facility] 12-29-2022 Miscellaneous Notes The following approved medication requests have been transmitted electronically. Requested Prescriptions Pending Prescriptions Disp Refills amphetamine-dextroamphetamine XR (ADDERALL XR) 20 mg 24 hr capsule 30 capsule 0 Sig: Take 1 capsule by mouth once daily for 30 days. Arturo Pickens MD Last WC: greater than one year ago Last ADHD / Med Check visit: 05/19/22 - reply sent in My Chart indicating that patient is due for next med check Verify RX Benefits Last medication refill date: 11/25/22 Requesting 30 day supply Retail pharmacy updated: Completed Patient aware RX will be sent to pharmacy. No need to notify patient. Immunizations due: MENINGOCOCCAL B: Consider based on risk(1 of 2 - Risk Bexsero 2-dose series) Never done HEPATITIS C SCREENING Never done HIV SCREENING Never done COVID-19 VACCINE(2 - Moderna series) due on 05/13/2021 DTAP,TDAP,TD(7 - Td or Tdap) due on 06/26/2022 INFLUENZA(1) due on 07/31/2022 DEPRESSION ASSESSMENT Never done Kelli Schaefer RN documented in this encounter [facility] 11-25-2022 Miscellaneous Notes The following approved medication requests have been transmitted electronically. Requested Prescriptions Pending Prescriptions Disp Refills amphetamine-dextroamphetamine XR (ADDERALL XR) 20 mg 24 hr capsule 30 capsule 0 Sig: Take 1 capsule by mouth once daily for 30 days. amphetamine-dextroamphetamine XR (ADDERALL XR) 5 mg 24 hr capsule 30 capsule 0 Sig: Take 1 capsule by mouth once daily for 30 days. to add to 20 mg for a dose of 25mg daily Arturo Pickens MD Last [facility]: greater than one year ago Last ADHD / Med Check visit: 05/19/2022- message sent that needs to schedule medication check. Verify RX Benefits Completed Last medication refill date: 10/27/2022 Requesting 30 day supply Retail pharmacy updated: Completed Patient aware RX will be sent to pharmacy. No need to notify patient. Immunizations due: MENINGOCOCCAL B: Consider based on risk(1 of 2 - Risk Bexsero 2-dose series) Never done HEPATITIS C SCREENING Never done HIV SCREENING Never done COVID-19 VACCINE(2 - Moderna series) due on 05/13/2021 DEPRESSION ASSESSMENT Never done DTAP,TDAP,TD(7 - Td or Tdap) due on 06/26/2022 INFLUENZA(1) due on 07/31/2022 Reza Wang RN documented in this encounter [facility] 11-18-2022 Miscellaneous Notes Order was faxed to [facility] at [phone] and [phone]. Form completed and signed I spoke with our x-ray and they can not be done at either building till the new equipment comes in. Please confirm that we no longer do scoliosis xrays at our [facility] Location. I knew we do not have equipment at [facility]. [facility] order at [place] desk for review/signature Phill Godwin RN documented in this encounter [facility] 10-27-2022 Miscellaneous Notes Left message to call the office. Kaye Barcenas Ma Please schedule med check The following approved medication requests have been transmitted electronically. Requested Prescriptions Signed Prescriptions Disp Refills amphetamine-dextroamphetamine XR (ADDERALL XR) 20 mg 24 hr capsule 30 capsule 0 Sig: Take 1 capsule by mouth once daily for 30 days. Authorizing Provider: ARTURO PICKENS amphetamine-dextroamphetamine XR (ADDERALL XR) 5 mg 24 hr capsule 30 capsule 0 Sig: Take 1 capsule by mouth once daily for 30 days. to add to 20 mg for a dose of 25mg daily Authorizing Provider: ARTURO PICKENS MD Last WCC: 01/28/2021 Last ADHD / Med Check visit: 01/28/2021 Verify RX Benefits Completed Last medication refill date: 09/22/22 Requesting 30 day supply Retail pharmacy updated: Completed Patient aware RX will be sent to pharmacy. No need to notify patient. Immunizations due: MENINGOCOCCAL B: Consider based on risk(1 of 2 - Risk Bexsero 2-dose series) Never done HEPATITIS C SCREENING Never done HIV SCREENING Never done COVID-19 VACCINE(2 - Moderna series) due on 05/13/2021 DEPRESSION ASSESSMENT Never done DTAP,TDAP,TD(7 - Td or Tdap) due on 06/26/2022 INFLUENZA(1) due on 07/31/2022 Kaye Barcenas Ma documented in this encounter [facility] 09-22-2022 Miscellaneous Notes The following approved medication requests have been transmitted electronically. Requested Prescriptions Signed Prescriptions Disp Refills amphetamine-dextroamphetamine XR (ADDERALL XR) 20 mg 24 hr capsule 30 capsule 0 Sig: Take 1 capsule by mouth once daily for 30 days. Authorizing Provider: ARTURO PICKENS amphetamine-dextroamphetamine XR (ADDERALL XR) 5 mg 24 hr capsule 30 capsule 0 Sig: Take 1 capsule by mouth once daily for 30 days. to add to 20 mg for a dose of 25mg daily Authorizing Provider: ARTURO PICKENS LPN The following approved medication requests have been transmitted electronically. Requested Prescriptions Pending Prescriptions Disp Refills amphetamine-dextroamphetamine XR (ADDERALL XR) 20 mg 24 hr capsule 30 capsule 0 Sig: Take 1 capsule by mouth once daily for 30 days. amphetamine-dextroamphetamine XR (ADDERALL XR) 5 mg 24 hr capsule 30 capsule 0 Sig: Take 1 capsule by mouth once daily for 30 days. to add to 20 mg for a dose of 25mg daily Arturo Pickens MD Last WCC: greater than one year ago Last ADHD / Med Check visit: 05/19/2022 Verify RX Benefits Completed Last medication refill date: 08/18/2022 Requesting 30 day supply Retail pharmacy updated: Completed Patient aware RX will be sent to pharmacy. No need to notify patient. Immunizations due: MENINGOCOCCAL B: Consider based on risk(1 of 2 - Risk Bexsero 2-dose series) Never done HEPATITIS C SCREENING Never done HIV SCREENING Never done COVID-19 VACCINE(2 - Moderna series) due on 05/13/2021 DEPRESSION ASSESSMENT Never done DTAP,TDAP,TD(7 - Td or Tdap) due on 06/26/2022 INFLUENZA(1) due on 07/31/2022 Kaur Rand LPN documented in this encounter [facility] 07-19-2022 Miscellaneous Notes Last WCC: greater than one year ago Last ADHD / Med Check visit: 05/19/22 Verify RX Benefits Completed Last medication refill date: 06/19/22 Requesting 30 day supply Retail pharmacy updated: Completed Patient aware RX will be sent to pharmacy. No need to notify patient. Immunizations due: PNEUMOCOCCAL(1 - PCV) due on 2007 MENINGOCOCCAL B: Consider based on risk(1 of 2 - Risk Bexsero 2-dose series) Never done HEPATITIS C SCREENING Never done HIV SCREENING Never done SHINGRIX VACCINE(1 of 2) Never done COVID-19 VACCINE(2 - Moderna risk series) due on 05/13/2021 DTAP,TDAP,TD(7 - Td or Tdap) due on 06/26/2022 Kelli Schaefer RN documented in this encounter [facility] 06-16-2022 Miscellaneous Notes The following approved medication requests have been transmitted electronically. Pending Prescriptions: Disp Refills amphetamine-dextroamphetamine XR 30 capsule0 (ADDERALL XR) 20 mg 24 hr capsule Sig: Take 1 capsule by mouth once daily for 30 days. ARTHUR Class: C-II CHRISTA: No Arturo Pickens MD Last WCC: 01/28/2021 Last ADHD / Med Check visit: 05/19/2022 Verify RX Benefits Completed Last medication refill date: 05/09/2022 Requesting 30 day supply Retail pharmacy updated: Completed Patient aware RX will be sent to pharmacy. No need to notify patient. Immunizations due: PNEUMOCOCCAL(1 - PCV) due on 2007 MENINGOCOCCAL B: Consider based on risk(1 of 2 - Risk Bexsero 2-dose series) Never done HEPATITIS C SCREENING Never done HIV SCREENING Never done COVID-19 VACCINE(2 - Moderna risk series) due on 05/13/2021 DTAP,TDAP,TD(7 - Td or Tdap) due on 06/26/2022 Kaur Rand LPN documented in this encounter [facility] 05-21-2022 Miscellaneous Notes Smoking Cessation Navigation Outcome of contact: Left Message Comments: A voicemail has been left for this patient regarding Tobacco Cessation support options. If this patient has any further questions they can email us at [email or web address] or call us at [phone]. [employer] Processor/Smoking Cessation Navigator: Lenore Orozco, [facility] ED documented in this encounter [facility] 05-19-2022 History of Presen t illness Narrative [facility] PEDIATRIC VISIT Patient seen on RideApart video visit platform Kwabena Aparicio physically located in the [facility]. PCP: Arturo Pickens MD See demographics for Kwabena's permanent address. Kwabena Aparicio is a 21 year old male who presents with ADHD for follow up visit accompanied by his self. Currently taking Adderall xr 20. Has decreased from 25 mg (not taking 5 mg XR anymore). The medication is helping dramatically. History was obtained from: patient Current symptoms: with meds has noticed a huge change in ability to focus on tasks. Stopped college after spring 2020 working- [employer]. hanging with girlfriend- friends. 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 Applying for 2022 Severity of Symptoms: mild Context: home and work PAST MEDICAL HISTORY Diagnosis Date Kawasaki disease (HCC) ROS for medication side effects: Abdominal pain: no Appetite problems: no Drowsiness: no Sleep problems: yes- was having trouble going to sleep at 20 mg. Headaches: no Depression: sometimes negative thoughts- bad moods. Suicidal ideation: no Agitation: no Teagan: no Tremors: no Weight change: no concerns- questions about interaction- Vap (nicotine) bad moods at time- some trouble with sleep - will do better if eating before sleep Had syncope event at work a few months ago- poor sleep, not eating, standing at counter. ALLERGIES: ALLERGIES No Known Allergies MEDICATIONS: amphetamine-dextroamphetamine XR (ADDERALL XR) 20 mg 24 hr capsule Take 1 capsule by mouth once daily for 30 days. ISOTRETINOIN (ACCUTANE ORAL) Take by mouth. FAMILY HISTORY Problem Relation Age of Onset None Mother None Father Cancer Paternal Grandmother Ovarian Social History: Patient lives with both parents Recent stressors: school problems Smoking or substance abuse: Yes Caffeine/Alcohol intake: No VIDEO EXAM: performed via video enabled technology General: Well developed, No acute distress Eyes: clear, no drainage, pupils equal Nose: no exudate OP: moist mucous membranes Neck: Full ROM Lungs: nonlabored breathing, no audible wheezing, no retractions Neuro: normal age appropriate gait Skin: no rashes, lesions or jaundice Psych: appropriate affect, somewhat scattered ASSESSMENT/PLAN: 21 year old male with ADHD with optimization of symptoms and without significant medication side effects. suggested covid vaccine #2 - Change medication to 20 mg of Adderall XR. He is already made this change and found success. There were side effects from 25 mg. - Follow up in 3-6 months for ADHD follow up -He did remark about feeling some a motivation or low mood at times. If this becomes problematic I would be happy to reevaluate him sooner for depression. -We discussed the importance of a regular sleep schedule to help with both attention and mood. SIGNATURE: Arturo Pickens MD PATIENT NAME: Kwabena Aparicio DATE: May 19, 2022 TIME: 11:38 AM documented in this encounter [facility] 05-09-2022 Miscellaneous Notes The following approved medication requests have been transmitted electronically. Pending Prescriptions: Disp Refills amphetamine-dextroamphetamine XR 30 capsule0 (ADDERALL XR) 20 mg 24 hr capsule Sig: Take 1 capsule by mouth once daily for 30 days. ARTHUR Class: C-II CHRISTA: No amphetamine-dextroamphetamine XR 30 capsule0 (ADDERALL XR) 5 mg 24 hr capsule Sig: Take 1 capsule by mouth once daily for 30 days. to add to 20 mg for a dose of 25mg daily ARTHUR Class: C-II CHRISTA: No Arturo Pickens MD Last WCC: 01-28-21 (MT) Last ADHD / Med Check visit: 01-28-21(MT) Verify RX Benefits Completed Last medication refill date: Requesting 30 day supply Retail pharmacy updated: Completed Patient aware RX will be sent to pharmacy. No need to notify patient. Immunizations due: COVID-19 VACCINE(1) Never done PNEUMOCOCCAL(1 - PCV) due on 2007 MENINGOCOCCAL B: Consider based on risk(1 of 2 - Risk Bexsero 2-dose series) Never done HEPATITIS C SCREENING Never done HIV SCREENING Never done DEPRESSION SCREENING due on 01/28/2022 Phill Godwin RN documented in this encounter [facility] 04-02-2022 Miscellaneous Notes The following approved medication requests have been transmitted electronically. Signed Prescriptions Disp Refills amphetamine-dextroamphetamine XR (ADDERALL XR) 20 mg 24 hr capsule 30 capsule 0 Sig: Take 1 capsule by mouth once daily for 30 days. ARTHUR Class: C-II CHRISTA: No Authorizing Provider: ARTURO PICKENS amphetamine-dextroamphetamine XR (ADDERALL XR) 5 mg 24 hr capsule 30 capsule 0 Sig: Take 1 capsule by mouth once daily for 30 days. to add to 20 mg for a dose of 25mg daily ARTHUR Class: C-II CHRISTA: No Authorizing Provider: ARTURO PICKENS MD Last WCC: 01/28/21 Last ADHD / Med Check visit: 01/28/21. Reply sent in My Chart indicating need for med check. Verify RX Benefits Completed Last medication refill date: 03/03/22 Requesting 30 day supply Retail pharmacy updated: Completed Patient aware RX will be sent to pharmacy. No need to notify patient. Immunizations due: MENINGOCOCCAL B: Consider based on risk(1 of 2 - Risk Bexsero 2-dose series) Never done COVID-19 VACCINE(1) Never done HEPATITIS C SCREENING Never done HIV SCREENING Never done DEPRESSION SCREENING due on 01/28/2022 Kelli Schaefer RN documented in this encounter [facility] Evaluation note Diagnosis Attention deficit hyperactivity disorder (ADHD), predominantly inattentive type [facility] Diagnosis Attention deficit hyperactivity disorder (ADHD), predominantly inattentive type [facility] Diagnosis Attention deficit hyperactivity disorder (ADHD), predominantly inattentive type- Primary [facility] Diagnosis Attention deficit hyperactivity disorder (ADHD), predominantly inattentive type [facility] Diagnosis Attention deficit hyperactivity disorder (ADHD), predominantly inattentive type [facility] Diagnosis Attention deficit hyperactivity disorder (ADHD), predominantly inattentive type [facility] Diagnosis Attention deficit hyperactivity disorder (ADHD), predominantly inattentive type [facility] Diagnosis Attention deficit hyperactivity disorder (ADHD), predominantly inattentive type [facility] noteNo assessment information availableWKettering Health Work Phone: Evaluation note* Diagnosis Attention deficit hyperactivity disorder (ADHD), predominantly inattentive type- Primary [facility] Diagnosis Attention deficit hyperactivity disorder (ADHD), predominantly inattentive type [facility] Diagnosis Attention deficit hyperactivity disorder (ADHD), predominantly inattentive type [facility] Diagnosis Attention deficit hyperactivity disorder (ADHD), predominantly inattentive type [facility] Diagnosis Dog bite, initial encounter- Primary Eye problem Other eye problems [facility] Diagnosis Scoliosis concern Special screening for other specified conditions [facility] Diagnosis Attention deficit hyperactivity disorder (ADHD), predominantly inattentive type [facility] Diagnosis NO SHOW- Primary [facility] Diagnosis Pre-syncope- Primary Syncope and collapse [facility] Diagnosis Attention deficit hyperactivity disorder (ADHD), predominantly inattentive type [facility] Diagnosis Attention deficit hyperactivity disorder (ADHD), predominantly inattentive type [facility] Diagnosis Attention deficit hyperactivity disorder (ADHD), predominantly inattentive type [facility] Diagnosis Attention deficit hyperactivity disorder (ADHD), predominantly inattentive type [facility] Diagnosis Attention deficit hyperactivity disorder (ADHD), predominantly inattentive type [facility] Diagnosis Encounter for medical examination to establish care- Primary Attention deficit hyperactivity disorder (ADHD), predominantly inattentive type Marijuana use Cannabis abuse, unspecified Vapes nicotine containing substance Underweight (BMI < 18.5) Screening for HIV (human immunodeficiency virus) Special screening examination for other specified viral diseases Special screening examination for viral disease Special screening examination for unspecified viral disease Need for vaccination Need for prophylactic vaccination and inoculation against unspecified single disease Encounter for immunization Need for other specified prophylactic vaccination against single bacterial disease documented in this encounter [facility]* Diagnosis Marijuana use- Primary Cannabis abuse, unspecified documented in this encounter [facility] Chief Complaint and Reason for Visit Chief Complaint Encounter for screen ing for other musculoskeletal Summary Purpose Family History No Family History Records FoundNo Family History Records FoundNo Family History Records FoundNo Family History Records Found Advance Directives No Advanced Directives Records FoundNo Advanced Directives Records FoundNo Advanced Directives Records FoundNo Advanced Directives Records Found Reason for Referral Specialty Diagnoses / Procedures Referred By Gi scherer Referred To Contact Diagnoses Attention deficit hyperactivity disorder (ADHD), predominantly inattentive type Procedures ESTABLISH WITH PRIMARY CARE NEW PATIENT OFFICE/OUTPATIENT [facility] 60 MINUTES Arturo Pickens MD [address] [place] [address] Referral ID Status Reason Start Date Expiration Date Visits Requested Visits Authorized [id number] Authorized PCP Requested Referral 01/14/2024 01/13/2025 1 1 Specialty Diagnoses / Procedures Referred By Gi t Referred To Contact Procedures ECG Mahr, Celeste Zavala MD [address] [place] [address] Referral ID Status Reason Start Date Expiration Date V isits Requested Visits Authorized [id number] New Request 02/09/2024 03/05/2025 1 1 Additional Source Comments Source Comments (unrecognize d section and content) In the event this informatio n is protected by the Federal Confidentiality of Alcohol and Drug Abuse Patient Records regulations: The Federal rules restrict any use of the information to criminally investigate or prosecute any alcohol or drug abuse patient.[facility] the event this information is protected by the Federal Confidentiality of Alcohol and Drug Abuse Patient Records regulations: The Federal rules restrict any use of the information to criminally investigate or prosecute any alcohol or drug abuse patient.[facility] the event this information is protected by the Federal Confidentiality of Alcohol and Drug Abuse Patient Records regulations: The Federal rules restrict any use of the information to criminally investigate or prosecute any alcohol or drug abuse patient.[facility] the event this information is protected by the Federal Confidentiality of Alcohol and Drug Abuse Patient Records regulations: The Federal rules restrict any use of the information to criminally investigate or prosecute any alcohol or drug abuse patient.[facility] the event this information is protected by the Federal Confidentiality of Alcohol and Drug Abuse Patient Records regulations: The Federal rules restrict any use of the information to criminally investigate or prosecute any alcohol or drug abuse patient.[facility] the event this information is protected by the Federal Confidentiality of Alcohol and Drug Abuse Patient Records regulations: The Federal rules restrict any use of the information to criminally investigate or prosecute any alcohol or drug abuse patient.[facility] the event this information is protected by the Federal Confidentiality of Alcohol and Drug Abuse Patient Records regulations: The Federal rules restrict any use of the information to criminally investigate or prosecute any alcohol or drug abuse patient.[facility] the event this information is protected by the Federal Confidentiality of Alcohol and Drug Abuse Patient Records regulations: The Federal rules restrict any use of the information to criminally investigate or prosecute any alcohol or drug abuse patient.[facility] the event this information is protected by the Federal Confidentiality of Alcohol and Drug Abuse Patient Records regulations: The Federal rules restrict any use of the information to criminally investigate or prosecute any alcohol or drug abuse patient.[facility] the event this information is protected by the Federal Confidentiality of Alcohol and Drug Abuse Patient Records regulations: The Federal rules restrict any use of the information to criminally investigate or prosecute any alcohol or drug abuse patient.[facility] the event this information is protected by the Federal Confidentiality of Alcohol and Drug Abuse Patient Records regulations: The Federal rules restrict any use of the information to criminally investigate or prosecute any alcohol or drug abuse patient.[facility] the event this information is protected by the Federal Confidentiality of Alcohol and Drug Abuse Patient Records regulations: The Federal rules restrict any use of the information to criminally investigate or prosecute any alcohol or drug abuse patient.[facility] the event this information is protected by the Federal Confidentiality of Alcohol and Drug Abuse Patient Records regulations: The Federal rules restrict any use of the information to criminally investigate or prosecute any alcohol or drug abuse patient.[facility] the event this information is protected by the Federal Confidentiality of Alcohol and Drug Abuse Patient Records regulations: The Federal rules restrict any use of the information to criminally investigate or prosecute any alcohol or drug abuse patient.[facility] the event this information is protected by the Federal Confidentiality of Alcohol and Drug Abuse Patient Records regulations: The Federal rules restrict any use of the information to criminally investigate or prosecute any alcohol or drug abuse patient.[facility] the event this information is protected by the Federal Confidentiality of Alcohol and Drug Abuse Patient Records regulations: The Federal rules restrict any use of the information to criminally investigate or prosecute any alcohol or drug abuse patient.[facility] the event this information is protected by the Federal Confidentiality of Alcohol and Drug Abuse Patient Records regulations: The Federal rules restrict any use of the information to criminally investigate or prosecute any alcohol or drug abuse patient.[facility] the event this information is protected by the Federal Confidentiality of Alcohol and Drug Abuse Patient Records regulations: The Federal rules restrict any use of the information to criminally investigate or prosecute any alcohol or drug abuse patient.[facility] the event this information is protected by the Federal Confidentiality of Alcohol and Drug Abuse Patient Records regulations: The Federal rules restrict any use of the information to criminally investigate or prosecute any alcohol or drug abuse patient.[facility] the event this information is protected by the Federal Confidentiality of Alcohol and Drug Abuse Patient Records regulations: The Federal rules restrict any use of the information to criminally investigate or prosecute any alcohol or drug abuse patient.[facility] the event this information is protected by the Federal Confidentiality of Alcohol and Drug Abuse Patient Records regulations: The Federal rules restrict any use of the information to criminally investigate or prosecute any alcohol or drug abuse patient.[facility] the event this information is protected by the Federal Confidentiality of Alcohol and Drug Abuse Patient Records regulations: The Federal rules restrict any use of the information to criminally investigate or prosecute any alcohol or drug abuse patient.[facility] the event this information is protected by the Federal Confidentiality of Alcohol and Drug Abuse Patient Records regulations: The Federal rules restrict any use of the information to criminally investigate or prosecute any alcohol or drug abuse patient.[facility] the event this information is protected by the Federal Confidentiality of Alcohol and Drug Abuse Patient Records regulations: The Federal rules restrict any use of the information to criminally investigate or prosecute any alcohol or drug abuse patient.[facility] the event this information is protected by the Federal Confidentiality of Alcohol and Drug Abuse Patient Records regulations: The Federal rules restrict any use of the information to criminally investigate or prosecute any alcohol or drug abuse patient.[facility] the event this information is protected by the Federal Confidentiality of Alcohol and Drug Abuse Patient Records regulations: The Federal rules restrict any use of the information to criminally investigate or prosecute any alcohol or drug abuse patient.[facility] the event this information is protected by the Federal Confidentiality of Alcohol and Drug Abuse Patient Records regulations: The Federal rules restrict any use of the information to criminally investigate or prosecute any alcohol or drug abuse patient.[facility] the event this information is protected by the Federal Confidentiality of Alcohol and Drug Abuse Patient Records regulations: The Federal rules restrict any use of the information to criminally investigate or prosecute any alcohol or drug abuse patient.[facility] the event this information is protected by the Federal Confidentiality of Alcohol and Drug Abuse Patient Records regulations: The Federal rules restrict any use of the information to criminally investigate or prosecute any alcohol or drug abuse patient.[facility] the event this information is protected by the Federal Confidentiality of Alcohol and Drug Abuse Patient Records regulations: The Federal rules restrict any use of the information to criminally investigate or prosecute any alcohol or drug abuse patient.[facility] the event this information is protected by the Federal Confidentiality of Alcohol and Drug Abuse Patient Records regulations: The Federal rules restrict any use of the information to criminally investigate or prosecute any alcohol or drug abuse patient.[facility] the event this information is protected by the Federal Confidentiality of Alcohol and Drug Abuse Patient Records regulations: The Federal rules restrict any use of the information to criminally investigate or prosecute any alcohol or drug abuse patient.[facility] the event this information is protected by the Federal Confidentiality of Alcohol and Drug Abuse Patient Records regulations: The Federal rules restrict any use of the information to criminally investigate or prosecute any alcohol or drug abuse patient.[facility] the event this information is protected by the Federal Confidentiality of Alcohol and Drug Abuse Patient Records regulations: The Federal rules restrict any use of the information to criminally investigate or prosecute any alcohol or drug abuse patient.[facility] the event this information is protected by the Federal Confidentiality of Alcohol and Drug Abuse Patient Records regulations: The Federal rules restrict any use of the information to criminally investigate or prosecute any alcohol or drug abuse patient.[facility] the event this information is protected by the Federal Confidentiality of Alcohol and Drug Abuse Patient Records regulations: The Federal rules restrict any use of the information to criminally investigate or prosecute any alcohol or drug abuse patient.[facility] the event this information is protected by the Federal Confidentiality of Alcohol and Drug Abuse Patient Records regulations: The Federal rules restrict any use of the information to criminally investigate or prosecute any alcohol or drug abuse patient.[facility] the event this information is protected by the Federal Confidentiality of Alcohol and Drug Abuse Patient Records regulations: The Federal rules restrict any use of the information to criminally investigate or prosecute any alcohol or drug abuse patient.[facility] the event this information is protected by the Federal Confidentiality of Alcohol and Drug Abuse Patient Records regulations: The Federal rules restrict any use of the information to criminally investigate or prosecute any alcohol or drug abuse patient.[facility] the event this information is protected by the Federal Confidentiality of Alcohol and Drug Abuse Patient Records regulations: The Federal rules restrict any use of the information to criminally investigate or prosecute any alcohol or drug abuse patient.[facility] the event this information is protected by the Federal Confidentiality of Alcohol and Drug Abuse Patient Records regulations: The Federal rules restrict any use of the information to criminally investigate or prosecute any alcohol or drug abuse patient.[facility] the event this information is protected by the Federal Confidentiality of Alcohol and Drug Abuse Patient Records regulations: The Federal rules restrict any use of the information to criminally investigate or prosecute any alcohol or drug abuse patient.[facility] Reason for Visit (unrecogniz ed section and content) Reason Onset Date Comments Refill Request 04/02/2022 Reason Onset Date Comments Refill Request 05/09/2022 Reason Comments ADD/ADHD Follow up Reason Comments Smoking Cessation Reason Onset Date Comments Refill Request 06/15/2022 Reason Onset Date Comments Refill Request 07/19/2022 Reason Onset Date Comments Refill Request 08/19/2022 Reason Onset Date Comments Refill Request 09/22/2022 Reason Onset Date Comments Refill Request 10/25/2022 Reason Onset Date Comments Refill Request 11/22/2022 Reason Onset Date Comments Refill Request 12/27/2022 Reason Comments Medication Problem Reason Comments Medication check currently on Adderal l XR 20mg and adderall xr 5mg, doing well Reason Onset Date Comments Refill Request 03/07/2023 Reason Onset Date Comments Refill Request 05/06/2023 Reason Comments Animal Bite Above R eye x2 days Reason Onset Date Comments Refill Request 06/05/2023 Reason Onset Date Comments Refill Request 07/06/2023 Reason Onset Date Comments Refill Request 07/09/2023 Reason Onset Date Comments Refill Request 08/07/2023 Reason Onset Date Comments Refill Request 09/13/2023 Reason Onset Date Comments Refill Request 01/14/2024 Reason Onset Date Comments Establish Care No Show 02/08/2024 No show Reason Comments Chest Pain Reason Onset Date Comments Refill Request 02/23/2024 Reason Onset Date Comments Refill Request 06/24/2024 Reason Comments Refill Request Reason Onset Date Comments Refill Request 09/02/2024 Reason Onset Date Comments Refill Request 09/05/2024 Reason Onset Date Comments Refill Request 10/06/2024 Reason Onset Date Comments Refill Request 11/23/2024 Reason Onset Date Comments Refill Request 01/01/2025 Reason Onset Date Comments Refill Request 02/10/2025 Reason Onset Date Comments Refill Request 03/13/2025 Reason Comments Establish Care Peds transfer Reason Onset Date Comments Refill Request 05/07/2025 Reason Onset Date Comments Refill Request 05/29/2025 Care Teams (unrecognized sec tion and content) Nuclear Fuel Processing Technician Relationship Specialty Start Date End Date Arturo Pickens MD [address] [facility] [place] [address] PCP - General 04/11/10 Nuclear Fuel Processing Technician Relationship Specialty Start Date End Date Arturo Pickens MD [address] [facility] [place] [address] PCP - General 04/11/10 Nuclear Fuel Processing Technician Relationship Specialty Start Date End Date Arturo Pickens MD [address] [place] [address], [place] [address] PCP - General 04/11/10 Nuclear Fuel Processing Technician Relationship Specialty Start Date End Date Arturo Pickens MD [address] [place] [address], [place] [address] PCP - General 04/11/10 Nuclear Fuel Processing Technician Relationship Specialty Start Date End Date Arturo Pickens MD [address] [place] [address], [place] [address] PCP - General 04/11/10 Nuclear Fuel Processing Technician Relationship Specialty Start Date End Date Arturo Pickens MD [address] [facility] [place] [address] PCP - General 04/11/10 Nuclear Fuel Processing Technician Relationship Specialty Start Date End Date Arturo Pickens MD [address] [facility] [place] [address] PCP - General 04/11/10 Nuclear Fuel Processing Technician Relationship Specialty Start Date End Date Arturo Pickens MD [address] [place] [address], [place] [address] PCP - General 04/11/10 Nuclear Fuel Processing Technician Relationship Specialty Start Date End Date Arturo Pickens MD [address] [place] [address], [place] [address] PCP - General 04/11/10 Nuclear Fuel Processing Technician Relationship Specialty Start Date End Date Arturo Pickens MD [address] [place] [address] PCP - General 04/11/10 Team Status: Active Member Role Status Dates Dr. Arturo Pickens MD Family Provider Active Dr. Arturo Pickens MD Primary Care Provider Active Team Status: Inactive Member Role Status Dates Dr. Arturo Pickens MD Primary Care Provi lashell, Attending Provider, Referring Provider Active Nuclear Fuel Processing Technician Relationship Specialty Start Date End Date Arturo Pickens MD [address] [place] [address] PCP - General 04/11/10 Nuclear Fuel Processing Technician Relationship Specialty Start Date End Date Arturo Pickens MD [address] [place] [address] PCP - General 04/11/10 Nuclear Fuel Processing Technician Relationship Specialty Start Date End Date Arturo Pickens MD [address] [place] [address] PCP - General 04/11/10 Nuclear Fuel Processing Technician Relationship Specialty Start Date End Date Arturo Pickens MD [address] [place] [address] PCP - General 04/11/10 Nuclear Fuel Processing Technician Relationship Specialty Start Date End Date Arturo Pickens MD [address] [place] [address] PCP - General 04/11/10 Nuclear Fuel Processing Technician Relationship Specialty Start Date End Date Arturo Pickens MD [address] [place] [address] PCP - General 04/11/10 Nuclear Fuel Processing Technician Relationship Specialty Start Date End Date Arturo Pickens MD [address] [place] [address] PCP - General 04/11/10 Nuclear Fuel Processing Technician Relationship Specialty Start Date End Date Arturo Pickens MD [address] [place] [address] PCP - General 04/11/10 Nuclear Fuel Processing Technician Relationship Specialty Start Date End Date Arturo Pickens MD [address] [place] [address] PCP - General 04/11/10 Nuclear Fuel Processing Technician Relationship Specialty Start Date End Date Arturo Pickens MD [address] [place] [address] PCP - General Pediatrics 02/08/24 Nuclear Fuel Processing Technician Relationship Specialty Start Date End Date Lizzeth Santos MD [address] [place] [address] PCP - General Family Medicine 04/25/25 Nuclear Fuel Processing Technician Relationship Specialty Start Date End Date Lizzeth Santos MD [address] [place] [address] PCP - General Family Medicine 04/25/25 Podlogar, VAISHNAVI Connell.ADVERTISEMENT COMPOSITOR [address] [place] [address] Environmental Program Manager Family Medicine 04/27/25 Nuclear Fuel Processing Technician Relationship Specialty Start Date End Date Lizzeth Santos MD [address] [place] [address] PCP - General Family Medicine 04/25/25 Podlogar, VAISHNAVI Connell.ADVERTISEMENT COMPOSITOR [address] [place] [address] Environmental Program Manager Family Medicine 04/27/25 Trinidad Pascual APRN.ADVERTISEMENT COMPOSITOR [address] [place] [address] [facility] 05/11/25 Goals (unrecognized section and content) Goals may be documented in a n alternate section (unrecognized sect ion and content) No Status Records FoundNo Status Records FoundNo Status Records FoundNo Status Records Found INFORMATION SOURCE (unrecogn ized section and content) DATE CREATED AUTHOR 01/17/2023 [facility] DATE CREATED AUTHOR AUTHOR'S ORGANIZ ATION 04/11/2024 [facility] DATE CREATED AUTHOR AUTHOR'S ORGANIZ ATION 12/12/2024 [facility] DATE CREATED AUTHOR AUTHOR'S ORGANIZ ATION 03/29/2025 [facility] Scheduled Active and Recently Administ ered Medications (unrecognized section and content) Medication Order 02/07/2024 02/08/2024 02/09/2024 Ondansetron (ZOFRAN-ODT) disintegrating tablet 8 mg (COMPLETED) 8 mg, Oral, ONCE, 1 dose, On Thu02/09/24 at [id number] (Given - Provid er: Carissa Pritchard RN) FOR RECORDS PERTAINING TO PATIENTS WHO ARE OR HAVE BEEN ENROLLED IN A CHEMICAL DEPENDENCY/SUBSTANCEABUSE PROGRAM, SOME INFORMATION MAY BE OMITTED. This clinical summary was aggregated from multiple sources. Caution should be exercised in using it in the provision of clinical care. This summary normalizes information from multiple sources, and as a consequence, information in this document may materially change the coding, format and clinical context of patient data. In addition, data may be omitted in some cases. CLINICAL DECISIONS SHOULD BE BASED ON THE PRIMARY CLINICAL RECORDS. [employer] provides no warranty or guarantee of the accuracy or completeness of information in this document.
[2025-09-13 22:36] VITALS: BP 115/69; PULSE 60; RESP 18; O2SAT 100
[2025-09-13 22:42] LABS: Hematocrit 46.4 % (40-54); Hemoglobin 16.3 g/dL (13.0-16.5); Immature Granulocytes Count 0.020 X10^3/uL (0.0-0.0); Mean Corp Hgb Conc 35.1 g/dL (32-36); Mean Corpuscular Volume 92.8 fL (80-94); Mean Platelet Vol. 10.4 fl (6.2-12.0); NRBC Flagged by Analyzer 0 % (0-5); Platelet Count 247 K/mm3 (150-450); RBC Distribution Width CV 12.7 % (11.6-14.6); RBC Distribution Width SD 43.5 fl (35.1-43.9); Red Blood Count 5.00 M/mm3 (4.6-6.2); White Blood Count 9.5 K/mm3 (4.4-11.0)
[2025-09-13 22:49] LABS: Alcohol, Blood (Medical)-Serum < 10.1 mg/dL (<=10.0); Anion Gap 12 (5-15); BUN 20 mg/dL (4-19); BUN/Creat Ratio 20.7 RATIO (10-20); Calcium,Total 9.7 mg/dL (7.6-11.0); Carbon Dioxide 26.5 mmol/L (21.0-32.0); Chloride 100 mmol/L (98-108); Estimated Creatinine Clearance 105.47 ml/min (50-250); Glucose 103 mg/dL (70-99); Potassium 3.9 mmol/L (3.3-5.1)
[2025-09-13 22:57] LABS: Barbiturate Urine NEGATIVE (< 200 ng/mL); Benzodiazepine Urine NEGATIVE (< 200 ng/mL); PCP Urine NEGATIVE (< 25 ng/mL); THC Urine PRESUMPTIVE POSITIVE (< 50 ng/mL)
--- NOTE | 2025-09-13 22:57 | PCA ---
Addendum entered by Samantha Boo 09/14/25 02:26: REFERRED TO BERNA DUBOIS Original Note: CRISIS CALLED CHART FAXED
[2025-09-13 23:33] VITALS: RESP 18
--- NOTE | 2025-09-14 02:49 | PCA ---
PT ACCEPTED TO [facility] BY TO INTAKE 1 N2N [phone] OPT 2. FACILITY REQUESTED PINK SLIP FAXED, AND [facility] SET UP PRIOR TO N2N FOR AN ETA.
[2025-09-14 03:06] VITALS: BP 128/81; PULSE 100; RESP 16; TEMP 36.7; O2SAT 100
== END 2025-09-14 03:25 ==
PROVIDERS: Emergency Provider Emergency Medicine; PCP Family Medicine; Visit Provider Emergency Medicine
DX: R45.851 Suicidal ideations (principal); F41.9 Anxiety disorder, unspecified; F32.A Depression, unspecified; F17.290 Nicotine dependence, other tobacco product, uncomplicated; Z63.0 Problems in relationship with spouse or partner
CPT/HCPCS: 80048; 80307; 82077; 85025; 99284